=== PATIENT | male | born 1930 | race Caucasian/White ===

== ENCOUNTER → 2018-07-06 | Outpatient (CLI) | payer OTHER ==
[~2018-07-06] MED LIST: ACET-1256 PO; ALL300 PO; AMLO5TAB3 PO; ASPI-232 PO; ATOR-24 PO; DOCU-94 PO; ESCI10TA17 PO; FINA5TAB4 PO; LEVO75TA PO; METO-596 PO; PROB1TAB16 PO
== END | disposition home or self-care (01) ==
LOC: C.LABSPEC 11:49
PROVIDERS: ATTEND Internal Medicine
DX: R82.90 Unspecified abnormal findings in urine (principal)

== ENCOUNTER 2019-05-14 06:02 | Inpatient (IN) ==
--- OUTSIDE RECORDS SUMMARY | 2019-05-14 06:06 | External Medical Summary | Continuity of Care Document ---
:1930 Author Name Franklin Chapman Address Unavailable Unavailable , Care Team Providers Name Role Phone Octavio He [email or web address] PCP, UNKNOWN Unavailable Unavailable Problems Active medical history not documented Allergies and Adverse Reactions Allergy history not documented Medications Medications not documented Procedures Procedures not documented Immunizations Immunizations not documented Plan of Treatment Planned Encounters Appointment; Juan He M.D. Start: 10-Jun-2019 14:00 R equest Planned Observations Planned Goals not documented Results No Known Results Results not documented Encounters Appointment; Juan He M.D. 10-Jun-2019 14:00 Encounter Diagnosis: Problem not documented
--- NOTE | 2019-05-14 06:25 | CT Scan Report ---
CT head/brain wo con CLINICAL HISTORY: 89 years-old Male presenting with AMS, fall, confusion. TECHNIQUE: Multidetector CT imaging of the head was performed without the use of intravenous contrast . IV contrast: None. One or more dose lowering techniques were used consistent with the principles of ALARA (as low as reasonably achievable), including automatic exposure control, mA or kV adjustment t o individual patient size, and/or use of iterative reconstruction. COMPARISON: 03/04/2019. CT DOSE (mGy.cm): The estimated cumulative dose is 1026.24 mGy.cm. FINDINGS: Sanitation [employer] topogram: Left subclavian cardiac device. Proportional ventricular and sulcal prominence, likely age-related parenchymal volume loss. No hemorr daniela. Periventricular and subcortical white matter hypoattenuation, nonspecific but likely indicative of chronic small vessel ischemic change. Old lacunar infarcts in the basal ganglia. Old lacunar infa rct also noted in the genu of the corpus callosum. No acute territorial infarct. No mass effect or mi dline shift. No extra-axial fluid collection. Scattered mucosal thickening in ethmoid air cells. Calv arium intact. Mild infiltration of the subcutaneous tissue in the forehead. No hematoma. IMPRESSION: 1. Chronic small vessel ischemic change and multiple old lacunar infarcts. No acute intracranial abn ormality. 2. Trace scalp contusion in the forehead may be present. No subjacent osseous injury or hematoma. Electronically signed by: Jayden Solano M.D. 05/14/2019 6:24 AM
[2019-05-14 06:36] LABS: Basophils # (auto) 0.07 K/uL (0-0.2); Eosinophils # (auto) 0.49 K/uL (0-0.5); Eosinophils % (auto) 7.2 %; Hematocrit (blood only) 39.6 % (42-52); Hemoglobin 13.1 g/dL (14.0-18.0); Immature Granulocytes # (auto) 0.02 K/uL (0.00-0.02); Immature Granulocytes % (auto) 0.3 %; Lymphocytes # (auto) 1.62 K/uL (1.2-3.4); Lymphocytes % (auto) 23.9 %; Mean Corpuscular Hgb Conc 33.1 g/dL (32-36); Mean Corpuscular Volume 90.6 fL (80-100); Monocytes # (auto) 0.77 K/uL (0.11-0.59); Monocytes % (auto) 11.4 %; Neutrophils # (auto) 3.81 K/uL (1.4-6.5); Neutrophils % (auto) 56.2 %; Platelet Count 262 K/uL (130-400); RDW Coefficient of Variation 15.9 % (11.5-14.5); RDW Standard Deviation 52.7 fL (36.4-46.3); Red Blood Count 4.37 M/uL (4.7-6.1); White Blood Count 6.78 K/uL (4.8-10.8)
[2019-05-14 06:43] LABS: Alanine Aminotransferase 21 U/L (12-78); Aspartate Aminotransferase 19 U/L (15-37); BUN Creatinine Ratio 15.9 (10-20); Bilirubin Direct 0.1 mg/dl (0-0.2); Blood Urea Nitrogen 21 mg/dl (7-18); Calcium 8.4 mg/dl (8.5-10.1); Carbon Dioxide 25 mmol/L (21-32); Chloride 111 mmol/L (98-107); Est GFR (African American) 56.1; Est GFR (Non-African American) 48.4; Glucose 107 mg/dl (70-99); Potassium 3.6 mmol/L (3.5-5.1); Sodium 142 mmol/L (136-145)
[2019-05-14 06:45] LABS: INR 1.1 (0.9-1.1); Prothrombin Time 11.6 Seconds (9.0-12.0)
[2019-05-14 06:54] LABS: Alkaline Phosphatase 122 U/L (45-117); Bilirubin,Total 0.5 mg/dl (0.2-1); Total Protein 6.8 gm/dl (6.4-8.2); Troponin I < 0.015 ng/ml (0-0.045)
--- NOTE | 2019-05-14 06:59 | Emergency Department Note ---
Entered by Erendira Fuller acting as a scribe for History of Present Illness General Chief complaint: Fall Stated complaint: FALL/ HIP PAIN Time Seen by Provider: 05/14/19 06:27 Source: patient, family (daughter) and EMS History of Present Illness Onset (ago): hour(s) (last night) Location: head Pain Consistency: + other (episode) Quality: + other (fall) Associated symptoms: + denies other symptoms (abdominal pain, hip pain, chest pain, dysuria, changes in diet), + confusion and + other (fatigue) The patient is a 89 year old male that is presenting to the Emergency Room with complaints of an episode of a fall that occurred around midnight last night. The patient was brought to the Emergency Room via EMS. EMS reports that the patient fell last night at his personal care facility [facility]. EMS notes that the patient was found to be at baseline following the fall. EMS states that the patient was reportedly difficult to wake this morning and that he seemed more confused than baseline. EMS notes that his O2 saturation level was low when they picked him up, so they placed him on O2 en route. EMS reports that the patient had no complaints and was able to follow commands upon their arrival. The patient's daughter reports that the patient has intermittent episodes of confusion that usually resolve after a short period of time. His daughter denies that the patient has had any recent fevers or illnesses. His daughter reports that she has not been told that there have been in changes in the patients diet. His daughter notes that the patient has not been diagnosed with dementia but she does note that the patient has a history of confusion about place and person. 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 His daughter denies that the patient has any history of lung issues, diabetes, or major trauma from falls. His daughter states that the patient is usually able to get around on his own at his personal care facility and that he is able to attend all three meals without any issues. The patients daughter denies any recent changes in the patients medications. His daughter states that her sister recently met with the care staff at the [facility] who stated that the patient was doing well. The patient reports that he feels tired. He denies any abdominal pain, chest pain, dysuria, or hip pain. He states that he is currently in a dog pen and that the dogs are barking. Upon arrival, the patient told the nursing staff that his name is Renzo and that it is November. The nursing staff notes that the patient was later able to state that his name is Bebeto. Home Medications Home Medications Medication Instructions Recorded Confirmed Type acetaminophen 500 - 1,000 mg PO Q4 PRN 03/03/19 05/14/19 History allopurinol 300 mg PO DAILY 03/03/19 05/14/19 History aspirin 81 mg PO DAILY 03/03/19 05/14/19 History carvedilol [Coreg] 25 mg PO BID 03/03/19 05/14/19 History escitalopram oxalate 10 mg PO DAILY 03/03/19 05/14/19 History finasteride 5 mg PO DAILY 03/03/19 05/14/19 History lactobacillus combination no.4 1 mmu cells PO BID 03/03/19 05/14/19 History [Probiotic] levothyroxine [Synthroid] 75 mcg PO DAILY 03/03/19 05/14/19 History lisinopril 20 mg PO DAILY 03/03/19 05/14/19 History polyethylene glycol 3350 [Miralax] 17 g PO DAILY 03/03/19 05/14/19 History sennosides [senna] 8.6 mg PO BID 03/03/19 05/14/19 History Allergies Allergy/AdvReac Type Severity Reaction Status Date / Time morphine Allergy Unknown Verified 05/14/19 06:32 Past Med/Surg History Medical History Pacemaker TIA (transient ischemic attack) Constipation (Resolved) UTI (urinary tract infection) (Inactive) Family History Other No pertinent family history Social History Preferred Language: Romansh marital status: / Current Living Situation: Personal Care Facility current occupational status: retired Feels Safe at Home: Yes Smoking Status: Never smoker Review of Systems See HPI for pertinent positives & negatives. and A total of 10 systems reviewed and were otherwise negative Physical Exam Vital Signs Vital Signs - 24 hr 05/14/19 06:09 05/14/19 07:05 05/14/19 08:29 Temperature 36.8 C Temperature Source Oral Sepsis Recent Fever Within 48 Hours No Sepsis Action Taken by Nursing No Action Required Pulse Rate 85 Pulse Rate [Apical] 60 60 Respiratory Rate 18 16 16 Blood Pressure 167/86 H Blood Pressure [Right Arm] 144/74 H 163/89 H Blood Pressure Mean 113 Blood Pressure Mean [Right Arm] 97 113 Pulse Oximetry 95 92 93 Oxygen Delivery Method Room Air Room Air Room Air General: Older male who is sleeping but in no acute distress. He arouses and falls back to sleep. Answers some questions appropriately but some not. Alert to person only. HEENT: Normal cephalic atraumatic. Pupils are equal round and reactive to light. Extraocular movements are intact. Oropharynx is pink with moist mucous membranes. No swelling of the mouth lips or tongue. Neck: Supple with a midline trachea. No meningeal signs or stiffness, no JVD or bruits. No Stridor. Chest: Clear to auscultation bilaterally. No wheezes or rhonchi. No increased work of breathing. Heart: regular rate and rhythm. Abdomen: Soft nontender, nondistended without rebound guarding or rigidity. Extremities: No cyanosis clubbing or edema. No calf tenderness or asymmetry Spine/Back. Non tender to palpation. No CVA tenderness Skin: Good turgor without rashes. Neurologic exam: Cranial nerves two through 12 are intact. Motor and sensation are intact and symmetrical throughout. Course 0628:The patient was evaluated in room A09B. A complete history and physical examination was performed. 0715: I updated the patient on his current lab and imaging results. The patient is resting comfortably and a Esparza catheter is being placed at this time. 0731: I reevaluated the patient and discussed the patient's case with the patient's second daughter. 0738: I discussed the patient's case with Evan Poe, who will evaluate the patient for further management and care. 0745: Upon reevaluation, the patient is resting comfortably. I discussed laboratory and radiographic results with the patient and his daughter. They verbalized agreement of the treatment plan. The patient will be evaluated for further management and care. Consultations Consultation #1: I discussed the patient's case with Evan Poe, who will evaluate the patient for further management and care. Time: 07:38 Administered Medications Discontinued Medications Ceftriaxone Sodium 2,000 mg/ (Dextrose) 70 mls @ 100 mls/hr IV NOW STA Stop: 05/14/19 08:12 Last Admin: 05/14/19 08:30 Dose: 100 mls/hr Documented by: [id number] Medical Decision Making Differential Diagnosis Differential diagnosis includes: Etiologies such as infection, trauma, intracranial process, thyroid issues, electrolyte or metabolic abnormalities as well as others were entertained. Medical Records Attestation: I reviewed the patient's medical records. Home Medications Current Medication List: was personally reviewed by me Laboratory Data Attestation: I reviewed the patient's lab results. Result diagrams: 05/14/19 06:12 05/14/19 06:12 Lab Results 05/14/19 05/14/19 05/14/19 Range/Units 06:12 06:12 06:12 WBC 6.78 (4.8-10.8) K/uL RBC 4.37 L (4.7-6.1) M/uL Hgb 13.1 L (14.0-18.0) g/dL Hct 39.6 L (42-52) % MCV 90.6 (80-100) fL MCH 30.0 (25-34) pg MCHC 33.1 (32-36) g/dL RDW Std Deviation 52.7 H (36.4-46.3) fL RDW Coeff of Mandi 15.9 H (11.5-14.5) % Plt Count 262 (130-400) K/uL MPV 10.0 (7.4-10.4) fL Immature Gran % (Auto) 0.3 % Neut % (Auto) 56.2 % Lymph % (Auto) 23.9 % Eddy % (Auto) 11.4 % Eos % (Auto) 7.2 % Baso % (Auto) 1.0 % Immature Gran # (Auto) 0.02 (0.00-0.02) K/uL Neut # (Auto) 3.81 (1.4-6.5) K/uL Lymph # (Auto) 1.62 (1.2-3.4) K/uL Eddy # (Auto) 0.77 H (0.11-0.59) K/uL Eos # (Auto) 0.49 (0-0.5) K/uL Baso # (Auto) 0.07 (0-0.2) K/uL PT 11.6 (9.0-12.0) Seconds INR 1.1 (0.9-1.1) Sodium 142 (136-145) mmol/L Potassium 3.6 (3.5-5.1) mmol/L Chloride 111 H (98-107) mmol/L Carbon Dioxide 25 (21-32) mmol/L Anion Gap 6.0 (3-11) BUN 21 H (7-18) mg/dl Creatinine 1.30 (0.6-1.4) mg/dl Est Cr Clr Drug Dosing 44.0 ml/min Est GFR ( Amer) 56.1 Est GFR (Non-Af Amer) 48.4 BUN/Creatinine Ratio 15.9 (10-20) Glucose 107 H (70-99) mg/dl Calcium 8.4 L (8.5-10.1) mg/dl Total Bilirubin 0.5 (0.2-1) mg/dl Direct Bilirubin 0.1 (0-0.2) mg/dl AST 19 (15-37) U/L ALT 21 (12-78) U/L Alkaline Phosphatase 122 H (45-117) U/L Troponin I < 0.015 (0-0.045) ng/ml Total Protein 6.8 (6.4-8.2) gm/dl Albumin 3.0 L (3.4-5.0) gm/dl TSH 1.860 (0.300-4.500) uIu/ml Urine Color Urine Appearance (Clear) Urine pH (4.5-7.5) Ur Specific [place] (1.000-1.030) Urine Protein (Negative) Urine Glucose (UA) (Negative) Urine Ketones (Negative) Urine Blood (Negative) Urine Nitrite (Negative) Urine Bilirubin (Negative) Urine Urobilinogen (Negative) Ur Leukocyte Esterase (Negative) Urine WBC (Auto) (0-5) /hpf Urine RBC (Auto) (0-4) /hpf U Hyaline Cast (Auto) (0-5) /lpf U Epithel Cells (Auto) (0-5) /lpf Urine Bacteria (Auto) (Negative) 05/14/19 Range/Units 07:20 WBC (4.8-10.8) K/uL RBC (4.7-6.1) M/uL Hgb (14.0-18.0) g/dL Hct (42-52) % MCV (80-100) fL MCH (25-34) pg MCHC (32-36) g/dL RDW Std Deviation (36.4-46.3) fL RDW Coeff of Mandi (11.5-14.5) % Plt Count (130-400) K/uL MPV (7.4-10.4) fL Immature Gran % (Auto) % Neut % (Auto) % Lymph % (Auto) % Eddy % (Auto) % Eos % (Auto) % Baso % (Auto) % Immature Gran # (Auto) (0.00-0.02) K/uL Neut # (Auto) (1.4-6.5) K/uL Lymph # (Auto) (1.2-3.4) K/uL Eddy # (Auto) (0.11-0.59) K/uL Eos # (Auto) (0-0.5) K/uL Baso # (Auto) (0-0.2) K/uL PT (9.0-12.0) Seconds INR (0.9-1.1) Sodium (136-145) mmol/L Potassium (3.5-5.1) mmol/L Chloride (98-107) mmol/L Carbon Dioxide (21-32) mmol/L Anion Gap (3-11) BUN (7-18) mg/dl Creatinine (0.6-1.4) mg/dl Est Cr Clr Drug Dosing ml/min Est GFR ( Amer) Est GFR (Non-Af Amer) BUN/Creatinine Ratio (10-20) Glucose (70-99) mg/dl Calcium (8.5-10.1) mg/dl Total Bilirubin (0.2-1) mg/dl Direct Bilirubin (0-0.2) mg/dl AST (15-37) U/L ALT (12-78) U/L Alkaline Phosphatase (45-117) U/L Troponin I (0-0.045) ng/ml Total Protein (6.4-8.2) gm/dl Albumin (3.4-5.0) gm/dl TSH (0.300-4.500) uIu/ml Urine Color Dark Yellow Urine Appearance Cloudy A (Clear) Urine pH 5.0 (4.5-7.5) Ur Specific [place] 1.024 (1.000-1.030) Urine Protein Negative (Negative) Urine Glucose (UA) Negative (Negative) Urine Ketones Negative (Negative) Urine Blood Negative (Negative) Urine Nitrite Positive A (Negative) Urine Bilirubin Negative (Negative) Urine Urobilinogen Negative (Negative) Ur Leukocyte Esterase 2+ H (Negative) Urine WBC (Auto) >30 H (0-5) /hpf Urine RBC (Auto) 0-4 (0-4) /hpf U Hyaline Cast (Auto) 1-5 (0-5) /lpf U Epithel Cells (Auto) 0-5 (0-5) /lpf Urine Bacteria (Auto) 4+ H (Negative) Imaging Data Radiologist's Impression: Radiology results as stated below per my review and the radiologist's interpretation: CT head/brain wo con CLINICAL HISTORY: 89 years-old Male presenting with AMS, fall, confusion. TECHNIQUE: Multidetector CT imaging of the head was performed without the use of intravenous contrast. IV contrast: None. One or more dose lowering techniques were used consistent with the principles of ALARA (as low as reasonably achievable), including automatic exposure control, mA or kV adjustment to individual patient size, and/or use of iterative reconstruction. COMPARISON: 03/04/2019. CT DOSE (mGy.cm): The estimated cumulative dose is 1026.24 mGy.cm. FINDINGS: Bookkeeper topogram: Left subclavian cardiac device. Proportional ventricular and sulcal prominence, likely age-related parenchymal volume loss. No hemorrhage. Periventricular and subcortical white matter hypoattenuation, nonspecific but likely indicative of chronic small vessel ischemic change. Old lacunar infarcts in the basal ganglia. Old lacunar infarct also noted in the genu of the corpus callosum. No acute territorial infarct. No mass effect or midline shift. No extra-axial fluid collection. Scattered mucosal thickening in ethmoid air cells. Calvarium intact. Mild infiltration of the subcutaneous tissue in the forehead. No hematoma. IMPRESSION: 1. Chronic small vessel ischemic change and multiple old lacunar infarcts. No acute intracranial abnormality. 2. Trace scalp contusion in the forehead may be present. No subjacent osseous injury or hematoma. Electronically signed by: Jayden Solano M.D. 05/14/2019 6:[address] cervical spine wo con CLINICAL HISTORY: 89 years-old Male presenting with fall, confusion. TECHNIQUE: Multidetector CT of the cervical spine was performed without the use of intravenous contrast. IV contrast: None. One or more dose lowering techniques were used consistent with the principles of ALARA (as low as reasonably achievable), including automatic exposure control, mA or kV adjustment to individual patient size, and/or use of iterative reconstruction. COMPARISON: None. CT DOSE (mGy.cm): The estimated cumulative dose is 1026.24. FINDINGS: Bookkeeper topogram: Left subclavian implanted cardiac device Osteopenia. Straightening of normal cervical lordosis. Trace anterolisthesis of C3 on C4 and retrolisthesis of C4 on C5. Trace anterolisthesis of C7 on T1. Vertebral bodies maintain normal height. Multilevel intervertebral disc height loss, which is moderate to severe from C4-5 through C6-7. Disc osteophyte complexes noted to varying degrees at every level with mild posterior bony spurring at C3-4 through C5-6. Limited evaluation of the soft tissues of the spinal canal further suggest mild spinal canal narrowing at these levels. Facet arthropathy and uncovertebral hypertrophy results in osseous neural foraminal narrowing bilaterally at C3-4, bilaterally at C4-5, and bilaterally at C5-6. No acute fracture or subluxation allowing for osteopenia, which decreases sensitivity for fracture detection. Skull base is intact. Lung apices clear. Paraspinal musculature within normal limits. Partially visualized left subclavian implanted cardiac device. IMPRESSION: 1. No acute osseous injury of the cervical spine. 2. Multilevel degenerative changes with straightening of cervical lordosis and multilevel anterolisthesis and retrolisthesis as above. 3. Multilevel mild osseous spinal canal narrowing and multilevel osseous neural foraminal narrowing. 4. Osteopenia. Electronically signed by: Jayden Solano M.D. 05/14/2019 7:44 AM XR chest 1V portable CLINICAL HISTORY: 89 years-old Male presenting with AMS. TECHNIQUE: Portable upright AP view of the chest was obtained. COMPARISON: 03/04/2019. FINDINGS: Left subclavian pacer with leads to the right atrium and right ventricular apex. Atherosclerosis of the aortic arch. Cardiac silhouette mildly enlarged as on prior exam. Pulmonary vascular prominence increased from prior. Bronchial wall cuffing suggested. Low lung volumes. Added density in the mid to basilar left lung. No large effusion or pneumothorax. Degenerative changes of the left glenohumeral joint. IMPRESSION: 1. Asymmetric left lung infiltrate in the mid to basilar region. While this may represent asymmetric pulmonary edema, this is most concerning for pneumonia. 2. Mild cardiomegaly with volume overload and congestive change. Electronically signed by: Jayden Solano M.D. 05/14/2019 7:26 AM ECG Data Attestation: I personally reviewed and interpreted this ECG as follows: Indication: weakness Rate (beats per minute): 60 Rhythm: other (paced) Findings: + other (low voltage), + nonspecific-ST abn and + paced rhythm Comparison ECG Date: from (03/04/2019) Change: the following changes noted (T-wave abnormalities have improved laterally.) Blood Pressure Blood Pressure Findings: Elevated blood pressure Blood Pressure Disposition: Referred to patients primary care provider LUCÍA Narrative This patient is brought in after having altered mental status. He has increased lethargy and confusion. He may have fallen yesterday. [place] but according to his daughter he is otherwise been healthy lately. He has no diagnosed history of dementia but does get confused at times his daughter says. On my exam, he is sleeping but arouses and answers some questions appropriately but others obviously not. He has a nonfocal neurologic exam otherwise. CAT scan of his head was obtained and was unremarkable. EKG shows an intermittently paced rhythm but no ischemic changes. He has no significant electrolyte or metabolic abnormalities. His white count is not elevated nor does he have a fever. He is not anemic. His urinalysis does suggest a UTI. His chest x-ray may also have a pneumonia versus some asymme trical pulmonary edema. He was given IV Rocephin for presumed UTI and possible pneumonia. I think the UTI actually fits this picture more. I did order blood cultures and lactic acid in light of this as well. I have consulted Dr. Deleon from the [facility] hospitalist team to see the patient in the ER for further treatment and evaluation. Impression & Plan Altered mental status, UTI (urinary tract infection), Pneumonia Discharge Plan Visit Data Chief Complaint: Fall Stated Complaint: FALL/ HIP PAIN Other Complaint: Hip Pain ED Provider: Preston Ho Discharge Problem: Altered mental status, UTI (urinary tract infection), Pneumonia Patient Disposition: Being Evaluated by Hospitalist Forms Stand Alone Forms: My [facility] Distra Prescriptions Prescriptions: No Action carvedilol [Coreg] 25 mg Tablet 25 mg PO BID RF: 0 sennosides [senna] 8.6 mg Tablet 8.6 mg PO BID RF: 0 lisinopril 20 mg Tablet 20 mg PO DAILY RF: 0 aspirin 81 mg Tablet,Delayed Release (Dr/Ec) 81 mg PO DAILY RF: 0 acetaminophen 500 mg Tablet 500 - 1,000 mg PO Q4 PRN (Reason: pain/fever) RF: 0 levothyroxine [Synthroid] 75 mcg Tablet 75 mcg PO DAILY RF: 0 allopurinol 300 mg Tablet 300 mg PO DAILY RF: 0 polyethylene glycol 3350 [Miralax] 17 gram/dose Powder 17 g PO DAILY RF: 0 finasteride 5 mg Tablet 5 mg PO DAILY RF: 0 escitalopram oxalate 10 mg Tablet 10 mg PO DAILY RF: 0 Probiotic 3 billion cell Capsule 1 mmu cells PO BID RF: 0 Referrals Referrals: [facility] AIRAM ALMEIDA [Primary Care Provider] - Discharge Problem: Altered mental status Qualifiers: Altered mental status type: unspecified Qualified Code(s): R41.82 - Altered mental status, unspecified UTI (urinary tract infection) Qualifiers: Urinary tract infection type: site unspecified Hematuria presence: without hematuria Qualified Code(s): N39.0 - Urinary tract infection, site not specified Pneumonia Qualifiers: Pneumonia type: due to unspecified organism Laterality: left Lung location: lower lobe of lung Qualified Code(s): J18.1 - Lobar pneumonia, unspecified organism The scribe's documentation has been prepared under my direction and personally reviewed by me in its entirety. I confirm that the note above accurately reflects all work, treatment, procedures, and medical decision making performed by me.
--- NOTE | 2019-05-14 07:28 | XRay Report ---
XR chest 1V portable CLINICAL HISTORY: 89 years-old Male presenting with AMS. TECHNIQUE: Portable upright AP view of the chest was obtained. COMPARISON: 03/04/2019. FINDINGS: Left subclavian pacer with leads to the right atrium and right ventricular apex. Atherosclerosis of t he aortic arch. Cardiac silhouette mildly enlarged as on prior exam. Pulmonary vascular prominence in creased from prior. Bronchial wall cuffing suggested. Low lung volumes. Added density in the mid to b asilar left lung. No large effusion or pneumothorax. Degenerative changes of the left glenohumeral edinson int. IMPRESSION: 1. Asymmetric left lung infiltrate in the mid to basilar region. While this may represent asymmetric pulmonary edema, this is most concerning for pneumonia. 2. Mild cardiomegaly with volume overload and congestive change. Electronically signed by: Jayden Solano M.D. 05/14/2019 7:26 AM
[2019-05-14] MEDS ORDERED: cefTRIAXone SODIUM 2,000 MG in DEXTROSE 5% 50 ML IV STA (07:31)
--- NOTE | 2019-05-14 07:47 | CT Scan Report ---
CT cervical spine wo con CLINICAL HISTORY: 89 years-old Male presenting with fall, confusion. TECHNIQUE: Multidetector CT of the cervical spine was performed without the use of intravenous contra st. IV contrast: None. One or more dose lowering techniques were used consistent with the principles of ALARA (as low as reasonably achievable), including automatic exposure control, mA or kV adjustment to individual patient size, and/or use of iterative reconstruction. COMPARISON: None. CT DOSE (mGy.cm): The estimated cumulative dose is 1026.24. FINDINGS: Client Relationship Executive topogram: Left subclavian implanted cardiac device Osteopenia. Straightening of normal cervical lordosis. Trace anterolisthesis of C3 on C4 and retrolis thesis of C4 on C5. Trace anterolisthesis of C7 on T1. Vertebral bodies maintain normal height. Multi level intervertebral disc height loss, which is moderate to severe from C4-5 through C6-7. Disc osteo phyte complexes noted to varying degrees at every level with mild posterior bony spurring at C3-4 thr ough C5-6. Limited evaluation of the soft tissues of the spinal canal further suggest mild spinal can al narrowing at these levels. Facet arthropathy and uncovertebral hypertrophy results in osseous neur al foraminal narrowing bilaterally at C3-4, bilaterally at C4-5, and bilaterally at C5-6. No acute fr acture or subluxation allowing for osteopenia, which decreases sensitivity for fracture detection. Sk ull base is intact. Lung apices clear. Paraspinal musculature within normal limits. Partially visuali zed left subclavian implanted cardiac device. IMPRESSION: 1. No acute osseous injury of the cervical spine. 2. Multilevel degenerative changes with straightening of cervical lordosis and multilevel anterolist hesis and retrolisthesis as above. 3. Multilevel mild osseous spinal canal narrowing and multilevel osseous neural foraminal narrowing. 4. Osteopenia. Electronically signed by: Jayden Solano M.D. 05/14/2019 7:44 AM
[2019-05-14 07:51] LABS: Appearance Urine Cloudy (Clear); Bacteria Urine Automated 4+ (Negative); Bilirubin Urine Negative (Negative); Blood Urine Negative (Negative); Color Urine Dark Yellow; Epithelial Cell Urine Auto 0-5 /lpf (0-5); Glucose Urine UA Negative (Negative); Ketones Urine Negative (Negative); Leukocyte Esterase Urine 2+ (Negative); Nitrite Urine Positive (Negative); Protein Urine Negative (Negative); RBC Urine Automated 0-4 /hpf (0-4); Specific Gravity Urine 1.024 (1.000-1.030); Urobilinogen Urine Negative (Negative); WBC Urine Automated >30 /hpf (0-5)
--- NOTE | 2019-05-14 08:40 | History & Physical Report ---
Date of Service May 14, 2019 Assessment & Plan (1) Altered mental status: Presented with obtundation, stuporous state Altered mental status: At baseline patient is able to communicate, able to recognize family has decline in memory and cognition ( dementia) usually able to communicate/have conversation Patient could not be aroused during my interview in ER no evidence of any acute neurological event/CVA: CT head shows no acute pathology, no evidence of intracranial hemorrhage No focal neurological deficit noted in apparent/limited neuro exam altered mental status due to : Possible metabolic encephalopathy in the setting of infection/pneumonia/abnormal UA/dehydration Patient will be admitted to medical telemetry, monitor neurochecks (2) Metabolic encephalopathy: Presented with obtundation, metabolic encephalopathy secondary to infection, left lower lobe pneumonia, possible UTI Patient started with empiric antibiotic with IV Unasyn (for concern of aspiration-patient noted to have increased somnolence in past 1 week, high risk for aspiration with baseline dementia. No report of ongoing fever chills or cough in the personal alf Added IV Zithromax for atypical coverage No evidence of sepsis, normal white count, normal vitals, patient is afebrile Strict aspiration precaution, n.p.o. till patient is awake and alert Speech pathology evaluation requested (3) Left lower lobe pneumonia: Symmetrical infiltrate noted in left lower lobe Suspicious of pneumonia Empiric antibiotics as outlined above, Unasyn/Zithromax, Ordered for speech evaluation-to assess aspiration risk Strict aspiration precaution Chest x-ray suggestive of possible pulmonary congestion No lower extremity edema Order for resting echo to assess LV function/evidence of congestive heart failure (4) Abnormal urinalysis: Urine noted to be cloudy, with positive nitrite Ordered for urine culture Antibiotic as outlined above (5) Fall: Report of fall last night, patient was found on floor at personal alf Per nursing staff, patient did not hit his head, no weakness or pain noted on initial evaluation CT head noncontrast shows no acute intracranial pathology Cervical spine CT shows no acute change Patient does have a superficial abrasion on bilateral knees No evidence of active infection Local wound care will be provided Order for fall precaution PT OT evaluation when medically stable to participate (6) History of spontaneous intraventricular intracranial hemorrhage: History of recent continue intracranial hemorrhage November Patient was at [facility] ER on 12/06/2018,-presented with complaint of headache/confusion/decreased appetite No history of trauma CT head noncontrast showed large intra-ventricular hemorrhage in the right lateral ventricle with trace blood in left lateral and third ventricles. Chest x-ray at that time also showed infiltrateconcern for pneumonia Patient was transferred to [facility] for neurosurgery evaluation-had a week long hospital stay () Patient did not require any neurosurgery intervention at [facility] imaging during the admission remained stable, without active source of bleed BP medications were optimized prior to DC. Patient mentation waxed and waned during his ICU and medical surgical floor stay At times patient was found unresponsive but repeat imaging and EEG was unremarkable Per discharge summary note, -patient's mental status usually noted to be worse, patient is more obtunded lethargic in the morning Was discharged to rehab [facility] on 12/14/2018 During this hospital admission: 05/14/[address] head noncontrast shows no evidence of intracranial hemorrhage (7) Hypertension: BP stable Continue lisinopril 20 mg daily/Coreg 25 mg twice daily-Home medication (8) Hyperlipidemia: Continue atorvastatin 40 mg daily (9) Hypothyroidism: Continue levothyroxine 75 mcg daily TSH level within normal limits (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 Jori Stockton Patient is sent from [facility] -early this morning, as patient was found to be stuporous, difficult to arouse, mental status changed from normal baseline Could not obtain any information from the patient, Very obtunded, lethargic, opened eyes briefly to voice, falls back to sleep, Right-sided facial droop, distortion of the mouth noted while patient was sleeping, gets corrected and when patient is awake, and trying to articulate Rest of the information obtained from patient's daughter and son-in-law present at bedside, ER physician notes, and nursing report from [facility] As per nursing: Patient sustained a fall around midnight today, Nursing staff found him lying on the floor Patient was arousable, mentioned that he slipped and fell Did not hit his head, noted to have bruits on both knees Patient was evaluated by nursing staff, all range of motion of the extremities were normal, patient was awake, able to answer questions appropriately This morning patient was found to be difficult to arouse, somnolent, Vital checks were within normal limit Patient was sent to [facility] ER for further evaluation No report of fever chills, no cough, no nausea vomiting or diarrhea at the personal alf Daughter mentions-she visited patient proximately 5 days back, noted that patient was always sleeping most part of the day, As he wakes up, he is alert, oriented to person only, significant memory and cognitive decline is noted after November 2018 intracranial hemorrhage Normally he is able to ambulate with a walker /able to feed himself /needs assistance in ADLs Patient's current mentation is completely different from his normal baseline as per Family and nursing staff at the [facility]: No report of difficulty swallowing , no signs /symptoms of aspiration: Coughing /chocking during meals In the ER: Vital signs at 6:09 AM Temperature 36.8/heart rate 85/respiratory rate 18/blood pressure 167/87 Pulse oximetry 95% in room air White count normal, electrolytes essentially within normal limit except for mild elevation of BUN -suggestive of possible dehydration/creatinine at approximate baseline Chest x-ray shows left lower lobe infiltrate CT head noncontrast shows no evidence of intracranial hemorrhage, no acute pathology Allergies Allergy/AdvReac Type Severity Reaction Status Date / Time morphine Allergy Unknown Verified 05/14/19 06:32 Home Medications Home Medications Medication Instructions Recorded Confirmed Type acetaminophen 500 - 1,000 mg PO Q4 PRN 03/03/19 05/14/19 History allopurinol 300 mg PO DAILY 03/03/19 05/14/19 History aspirin 81 mg PO DAILY 03/03/19 05/14/19 History carvedilol [Coreg] 25 mg PO BID 03/03/19 05/14/19 History escitalopram oxalate 10 mg PO DAILY 03/03/19 05/14/19 History finasteride 5 mg PO DAILY 03/03/19 05/14/19 History lactobacillus combination no.4 1 mmu cells PO BID 03/03/19 05/14/19 History [Probiotic] levothyroxine [Synthroid] 75 mcg PO DAILY 03/03/19 05/14/19 History lisinopril 20 mg PO DAILY 03/03/19 05/14/19 History polyethylene glycol 3350 [Miralax] 17 g PO DAILY 03/03/19 05/14/19 History sennosides [senna] 8.6 mg PO BID 03/03/19 05/14/19 History Past Med/Surg History Medical History BPH w urinary obs/LUTS Hyperlipidemia Hypertension Hypothyroidism Intracranial hemorrhage Nontraumatic, 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 TIA (transient ischemic attack) Constipation (Resolved) UTI (urinary tract infection) (Inactive) Family History Other No pertinent family history Social History Preferred Language: Mongolian Communication Ability: Effective Beliefs That Will Affect Care: None marital status: / Current Living Situation: Personal Care Facility Current Living Situation Comment: [facility] current occupational status: retired Other Information That Helps Us Care for You: No Feels Safe at Home: Yes Safety Concerns: Feels Safe At This Time Smoking Status: Never smoker Hx Alcohol Use: No Hx Substance Use: No Review of Systems Review of Systems: Unobtainable due to mental health condition (Obtunded, somnolent/unable to follow commands) Physical Exam Constitutional: no acute distress Elderly male, very somnolent difficult to arouse, opens eyes briefly to voice, falls back to sleep, no apparent distress noted Eyes: + anicteric sclerae ENMT: Normal inspection Neck: normal visual inspection Respiratory: normal respiratory effort; no respiratory distress and no cough Auscultation: no crackles, no rales, no rhonchi and no wheezes Cardiovascular: RRR, no murmur, no edema Gastrointestinal (Abdomen): Inspection/Auscultation: abdomen normal to inspection and normal bowel sounds; abdomen not distended Percussion/Palpation: abdomen soft Musculoskeletal: Head/Neck/Chest: + head abnormal to inspection, normocephalic and head atraumatic Extremities: + extremities abnormal to inspection (Small area of superficial abrasion noted on right knee, there appeared to be secondary to recent trauma/fall, small abrasion noted at left knee as well, no sign of infection, erythema noted, no active drainage) Unable to check strength of extremity as patient remains obtunded Skin: Trauma: + evidence of skin trauma and + abrasion (Bilateral knees appears to be recent injury secondary to fall) Area of abrasion, noted on bilateral knees Neurologic: Obtunded, difficult to arouse, No apparent focal neurological deficit noted Psychiatric: Obtunded, somnolent Results & Data Vital Signs (Past 12 Hours) Vital Signs Temp Pulse Pulse Resp BP BP Pulse Ox 05/14/19 08:29 60 16 163/89 H 93 05/14/19 07:05 60 16 144/74 H 92 05/14/19 06:09 36.8 C 85 18 167/86 [address] HEAD NONCONTRAST:05/14/2019 1. 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 No acute intracranial abnormality. 2. Trace scalp contusion in the forehead may be present. No subjacent osseous injury or hematoma CHEST X-RAY ONE VIEW PORTABLE: 05/14/2019 1. Left subclavian pacer with leads to the right atrium and right ventricular apex. Asymmetric left lung infiltrate in the mid to basilar region. While may represe nt asymmetric pulmonary edema this is most concerning for pneumonia. 2. Mild cardiomegaly with volume overload and congestive changes. Medications Administered Medication administered in ER: IV Rocephin 1 g x 1 stat -for possible community-acquired pneumonia Current Inpatient Medications Acetaminophen (Tylenol) 650 mg PO Q4H PRN PRN Reason: Pain or Fever Stop: 06/13/19 09:55 Al Hydrox/Mg Hydrox/Simethicone (Maalox) 15 ml PO Q4H PRN PRN Reason: Dyspepsia Stop: 06/13/19 09:55 Allopurinol (Zyloprim) 300 mg PO DAILY [facility] Stop: 06/13/19 09:55 Aspirin (Ecotrin Ectab) 81 mg PO DAILY [facility] Stop: 06/13/19 09:55 Carvedilol (Coreg) 25 mg PO BID [facility] Stop: 06/13/19 09:55 Escitalopram Oxalate (Lexapro) 10 mg PO DAILY [facility] Stop: 06/13/19 09:55 Finasteride (Proscar) 5 mg PO DAILY [facility] Stop: 06/13/19 09:55 Heparin Sodium (Porcine) (Heparin Sodium (Porcine)) 5,000 units SQ Q12 [facility] Stop: 06/13/19 09:55 Azithromycin 500 mg/ Dextrose 255 mls @ 125 mls/hr IV Q24H [facility]; Protocol Stop: 05/19/19 08:44 Last Admin: 05/14/19 10:30 Dose: 125 mls/hr Documented by: Ampicillin Sodium/Sulbactam Sodium 3,000 mg/ Sodium Chloride 108 mls @ 200 mls/hr IV Q6H [facility]; Protocol Stop: 05/21/19 08:44 Last Admin: 05/14/19 09:32 Dose: 200 mls/hr Documented by: Sodium Chloride (Nss 1000ml) 1,000 mls @ 80 mls/hr IV .[id number] [facility] Stop: 05/14/19 22:25 Last Admin: 05/14/19 10:30 Dose: 80 mls/hr Documented by: Levothyroxine Sodium (Synthroid) 75 mcg PO DAILY [facility] Stop: 06/13/19 09:55 Lisinopril (Zestril) 20 mg PO DAILY [facility] Stop: 06/13/19 09:55 Magnesium Hydroxide (Milk Of Magnesia) 30 ml PO Q12H PRN PRN Reason: Constipation Stop: 06/13/19 09:55 Non-Formulary Medication (Lactobacillus Combination No.4 [Probiotic]) 1 mmu cells PO BID [facility] Stop: 06/13/19 09:55 Non-Formulary Medication (Polyethylene Glycol 3350 [Miralax]) 17 gm PO DAILY [facility] Stop: 06/13/19 09:55 Polyethylene Glycol (Miralax Powder Packet) 17 gm PO DAILY PRN PRN Reason: Constipation Stop: 06/13/19 09:55 Sennosides (Senokot) 8.6 mg PO BID [facility] Stop: 06/13/19 09:55 Home Medications Medication Instructions Recorded Confirmed acetaminophen 500 - 1,000 mg PO Q4 PRN 03/03/19 05/14/19 allopurinol 300 mg PO DAILY 03/03/19 05/14/19 aspirin 81 mg PO DAILY 03/03/19 05/14/19 carvedilol [Coreg] 25 mg PO BID 03/03/19 05/14/19 escitalopram oxalate 10 mg PO DAILY 03/03/19 05/14/19 finasteride 5 mg PO DAILY 03/03/19 05/14/19 lactobacillus combination no.4 1 mmu cells PO BID 03/03/19 05/14/19 [Probiotic] levothyroxine [Synthroid] 75 mcg PO DAILY 03/03/19 05/14/19 lisinopril 20 mg PO DAILY 03/03/19 05/14/19 polyethylene glycol 3350 [Miralax] 17 g PO DAILY 03/03/19 05/14/19 sennosides [senna] 8.6 mg PO BID 03/03/19 05/14/19 Code Status & VTE Plan Code Status DNR/DNI As per daughter/POA Loyda Shin cell phone number #[phone] VTE Prophylaxis Plan VTE Prophylaxis will be ordered: Yes (1) Hyperlipidemia Hyperlipidemia type: unspecified Qualified Code(s): E78.5 - Hyperlipidemia, unspecified (2) Hypothyroidism Hypothyroidism type: unspecified Qualified Code(s): E03.9 - Hypothyroidism, unspecified (3) Altered mental status Altered mental status type: unspecified Qualified Code(s): R41.82 - Altered mental status, unspecified (4) Left lower lobe pneumonia Pneumonia type: due to unspecified organism Qualified Code(s): J18.1 - Lobar pneumonia, unspecified organism (5) Hypertension Hypertension type: unspecified Qualified Code(s): I10 - Essential (primary) hypertension (6) Fall Encounter type: initial encounter Qualified Code(s): W19.XXXA - Unspecified fall, initial encounter
[2019-05-14] MEDS ORDERED: AMPICILLIN/SULBACTAM SOD 3,000 MG in 0.9 % SODIUM CHLORIDE 100 ML IV SCH (08:45)
[2019-05-14] MEDS ORDERED: POLYETHYLENE (MIRALAX) 17 GM PACK PO PRN (09:56)
[2019-05-14] MEDS ORDERED: ACETAMINOPHEN 325 MG TAB PO PRN (09:56)
[2019-05-14] MEDS ORDERED: ALUMINUM/MAGNESIUM SUSP 30 ML UDC PO PRN (09:56)
[2019-05-14] MEDS ORDERED: MAGNESIUM HYDROXIDE SUSP 30 ML UDC PO PRN (09:56)
[2019-05-14] MEDS ORDERED: SODIUM CHLORIDE 0.9% 1000ML 1,000 ML IV SCH (09:56)
[2019-05-14] MEDS: AZITHROMYCIN 500 MG in DEXTROSE 5% 250 ML IV SCH (10:30)
--- NOTE | 2019-05-14 13:41 | Hospitalist Progress Note ---
Date of Service May 14, 2019 Subjective Attending addendum record Reviewed: Patient had urine tract infection/UTI on 03/03/2019 resistant to Unasyn /ampicillin Sensitive to Rocephin This patient patient's UA positive for leukocyte esterase, nitrite, urine appearance cloudy Urine culture pending Patient was given 1 g of IV Rocephin in ER at 8:30 AM today We will DC Unasyn (as prior E. coli was resistant) Antibiotic changed to IV Rocephin -covering both pneumonia and possible urinary tract infection continue Zithromax for atypical coverage Joie Deleon MD Results & Data Vital Signs (Past 12 Hours) Vital Signs Temp Pulse Pulse Pulse Resp BP BP 05/14/19 11:25 36.4 C L 61 20 151/83 H 05/14/19 10:20 36.2 C L 60 16 146/80 H 05/14/19 09:33 63 16 156/95 H 05/14/19 08:29 60 16 163/89 H 05/14/19 07:05 60 16 144/74 H 05/14/19 06:09 36.8 C 85 18 167/86 H Pulse Ox 05/14/19 11:25 95 05/14/19 10:20 92 05/14/19 09:33 93 05/14/19 08:29 93 05/14/19 07:05 92 05/14/19 06:09 95
[2019-05-14] MEDS: FINASTERIDE 5 MG TAB PO SCH (14:29)
[2019-05-14] MEDS: ASPIRIN 81 MG ECTAB PO SCH (14:29)
[2019-05-14] MEDS: SENNA 8.6 MG TAB PO SCH ×2 (14:30→20:50)
[2019-05-14] MEDS: ALLOPURINOL 300 MG TAB PO SCH (14:30)
[2019-05-14] MEDS: LISINOPRIL 20 MG TAB PO SCH (14:30)
[2019-05-14] MEDS: LACTOBACILLUS ACIDOPHILUS (FLORANEX) TAB PO SCH ×2 (14:31→20:50)
[2019-05-14] MEDS: LEVOTHYROXINE SODIUM 75 MCG TABLET PO SCH (14:31)
[2019-05-14] MEDS: HEPARIN SOD 5,000 UNIT/0.5 ML VIAL SQ SCH ×2 (14:32→20:49)
[2019-05-14] MEDS: ESCITALOPRAM OXALATE 10 MG TAB PO SCH (14:32)
[2019-05-14] MEDS: CARVEDILOL 25 MG TAB PO SCH ×2 (14:32→20:50)
[2019-05-14] MEDS: POLYETHYLENE (MIRALAX) 17 GM PACK PO SCH (14:33)
[2019-05-15 06:09] LABS: Hematocrit (blood only) 39.6 % (42-52); Hemoglobin 12.9 g/dL (14.0-18.0); Mean Corpuscular Hgb Conc 32.6 g/dL (32-36); Mean Corpuscular Volume 90.2 fL (80-100); Mean Platelet Volume 9.9 fL (7.4-10.4); Platelet Count 252 K/uL (130-400); RDW Coefficient of Variation 15.9 % (11.5-14.5); RDW Standard Deviation 52.4 fL (36.4-46.3); Red Blood Count 4.39 M/uL (4.7-6.1); White Blood Count 6.94 K/uL (4.8-10.8)
[2019-05-15] MEDS: LEVOTHYROXINE SODIUM 75 MCG TABLET PO SCH (06:11)
[2019-05-15 06:46] LABS: BUN Creatinine Ratio 15.1 (10-20); Calcium 8.2 mg/dl (8.5-10.1); Est GFR (African American) 71.8; Est GFR (Non-African American) 61.9; Potassium 3.6 mmol/L (3.5-5.1)
[2019-05-15] MEDS: cefTRIAXone SODIUM 1,000 MG in DEXTROSE 5% 50 ML IV SCH (08:02)
[2019-05-15] MEDS: CARVEDILOL 25 MG TAB PO SCH ×2 (08:06→20:10)
[2019-05-15] MEDS: FINASTERIDE 5 MG TAB PO SCH (08:07)
[2019-05-15] MEDS: SENNA 8.6 MG TAB PO SCH ×2 (08:07→20:09)
[2019-05-15] MEDS: LACTOBACILLUS ACIDOPHILUS (FLORANEX) TAB PO SCH ×2 (08:07→20:11)
[2019-05-15] MEDS: HEPARIN SOD 5,000 UNIT/0.5 ML VIAL SQ SCH ×2 (08:08→20:10)
[2019-05-15] MEDS: ALLOPURINOL 300 MG TAB PO SCH (08:08)
[2019-05-15] MEDS: LISINOPRIL 20 MG TAB PO SCH (08:08)
[2019-05-15] MEDS: ASPIRIN 81 MG ECTAB PO SCH (08:08)
[2019-05-15] MEDS: POLYETHYLENE (MIRALAX) 17 GM PACK PO SCH (08:09)
[2019-05-15] MEDS: ESCITALOPRAM OXALATE 10 MG TAB PO SCH (08:09)
[2019-05-15] MEDS: AZITHROMYCIN 500 MG in DEXTROSE 5% 250 ML IV SCH (08:51)
--- NOTE | 2019-05-15 16:55 | Hospitalist Progress Note ---
Date of Service May 15, 2019 Assessment & Plan (1) Altered mental status: Symptom resolved, patient is awake and alert status to approximate baseline Patient presented with obtundation, stuporous state Altered mental status: At baseline patient is able to communicate, able to recognize family has decline in memory and cognition ( dementia) usually able to communicate/have conversation no evidence of any acute neurological event/CVA: CT head shows no acute pathology, no evidence of intracranial hemorrhage No focal neurological deficit noted in apparent/limited neuro exam altered mental status due to : Possible metabolic encephalopathy in the setting of infection/pneumonia/abnormal UA/dehydration Mental status improved to baseline with IV hydration and antibiotic treatment (2) Metabolic encephalopathy: Resolved, Presented with obtundation, metabolic encephalopathy secondary to infection, left lower lobe pneumonia, /UTI Antibiotic adjusted to IV Rocephin P.o. Zithromax for left lower lobe pneumonia No evidence of sepsis, normal white count, normal vitals, patient is afebrile Appreciate input from speech therapy, recommend to start diet with soft bite site (3) Left lower lobe pneumonia: Symmetrical infiltrate noted in left lower lobe Suspicious of pneumonia Ordered for speech evaluation-to assess aspiration risk Strict aspiration precaution Appreciate input from speech, recommend to start patient on soft bite size, strict aspiration precaution (4) Abnormal urinalysis: Urine noted to be cloudy, with positive nitrite Urine culture growing gram negative bacilli/E. coli On Rocephin (5) Fall: Report of fall/ patient was found on floor at [facility] Per nursing staff, patient did not hit his head, no weakness or pain noted on initial evaluation CT head noncontrast shows no acute intracranial pathology Cervical spine CT shows no acute change Patient does have a superficial abrasion on bilateral knees No evidence of active infection Local wound care will be provided Order for fall precaution PT OT evaluation when medically stable to participate (6) History of spontaneous intraventricular intracranial hemorrhage: History of recent spontaneous intracranial hemorrhage November this Patient was at [facility] ER on 12/06/2018,-presented with complaint of headache/confusion/decreased appetite No history of trauma CT head noncontrast showed large intra-ventricular hemorrhage in the right lateral ventricle with trace blood in left lateral and third ventricles. Chest x-ray at that time also showed infiltrateconcern for pneumonia Patient was transferred to [facility] for neurosurgery evaluation-had a week long hospital stay () Patient did not require any neurosurgery intervention at [place] Neuro imaging during the admission remained stable, without active source of bleed BP medications were optimized prior to DC. Patient mentation waxed and waned during his ICU and medical surgical floor stay At times patient was found unresponsive but repeat imaging and EEG was unremarkable Per discharge summary note, -patient's mental status usually noted to be worse, patient is more obtunded lethargic in the morning Was discharged to rehab [facility] on 12/14/2018 During this hospital admission: 05/14/[address] head noncontrast shows no evidence of intracranial hemorrhage (7) Hypertension: BP stable Continue lisinopril 20 mg daily/Coreg 25 mg twice daily-Home medication (8) Hyperlipidemia: Continue atorvastatin 40 mg daily (9) Hypothyroidism: Continue levothyroxine 75 mcg daily TSH level within normal limits (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: On finasteride-continued Urine culture growing bacteria, on empiric antibiotic IV Rocephin CODE STATUS: Discussed with patient's daughter/POA DNR DNI DVT prophylaxis: Moderate to high risk, for decline in functional and cognitive status, limited mobility Order for subcu heparin Disposition: To be determined Patient is currently resident at [facility] PT OT evaluation requested, Social service consulted for discharge planning Subjective More awake and alert today, no cough, no fever chills Patient is oriented to person and and surrounding Denies of any headache, Does not recall the events of yesterday Evaluated by's speech diet advanced to [facility] with Bite size tolerating diet, no sign of aspiration Physical Exam Constitutional: no acute distress Eyes: + anicteric sclerae Neck: normal visual inspection Respiratory: normal respiratory effort; no respiratory distress and no cough Auscultation: no crackles, no rales, no rhonchi and no wheezes Cardiovascular: RRR, no murmur, no edema Gastrointestinal (Abdomen): Inspection/Auscultation: abdomen normal to inspection and normal bowel sounds; abdomen not distended Percussion/Palpation: abdomen soft Musculoskeletal: Head/Neck/Chest: normocephalic and head atraumatic Extremities: + extremities abnormal to inspection (Small area of superficial a brasion noted on right knee, there appeared to be secondary to recent trauma/fall, small abrasion noted at left knee as well, no sign of infection, erythema noted, no active drainage) Skin: Trauma: + evidence of skin trauma and + abrasion (Bilateral knees appears to be recent injury secondary to fall) Neurologic: PERRL, EOMI, accommodation nl, no face palsy, no dysarthria Psychiatric: Orientation: alert, oriented to person and oriented to place Results & Data Vital Signs (Past 12 Hours) Vital Signs Temp Pulse Pulse Resp BP Pulse Ox 05/15/19 15:35 36.8 C 70 21 144/88 H 97 05/15/19 15:01 64 05/15/19 12:00 36.4 C L 65 18 118/77 94 05/15/19 10:51 97 05/15/19 07:24 36.4 C L 63 16 152/85 H 93 05/15/19 07:01 64 (1) Hyperlipidemia Hyperlipidemia type: unspecified Qualified Code(s): E78.5 - Hyperlipidemia, unspecified (2) Hypothyroidism Hypothyroidism type: unspecified Qualified Code(s): E03.9 - Hypothyroidism, unspecified (3) Altered mental status Altered mental status type: unspecified Qualified Code(s): R41.82 - Altered mental status, unspecified (4) Left lower lobe pneumonia Pneumonia type: due to unspecified organism Qualified Code(s): J18.1 - Lobar pneumonia, unspecified organism (5) Hypertension Hypertension type: unspecified Qualified Code(s): I10 - Essential (primary) hypertension (6) Fall Encounter type: initial encounter Qualified Code(s): W19.XXXA - Unspecified fall, initial encounter
[2019-05-16] MEDS: LEVOTHYROXINE SODIUM 75 MCG TABLET PO SCH (05:41)
[2019-05-16] MEDS: cefTRIAXone SODIUM 1,000 MG in DEXTROSE 5% 50 ML IV SCH (08:11)
[2019-05-16] MEDS ORDERED: AZITHROMYCIN 250 MG TAB PO SCH ×2 (09:00)
[2019-05-16] MEDS: ESCITALOPRAM OXALATE 10 MG TAB PO SCH (09:44)
[2019-05-16] MEDS: CARVEDILOL 25 MG TAB PO SCH (09:44)
[2019-05-16] MEDS: ALLOPURINOL 300 MG TAB PO SCH (09:45)
[2019-05-16] MEDS: LACTOBACILLUS ACIDOPHILUS (FLORANEX) TAB PO SCH (09:45)
[2019-05-16] MEDS: LISINOPRIL 20 MG TAB PO SCH (09:45)
[2019-05-16] MEDS: ASPIRIN 81 MG ECTAB PO SCH (09:45)
[2019-05-16] MEDS: POLYETHYLENE (MIRALAX) 17 GM PACK PO SCH (09:46)
[2019-05-16] MEDS: SENNA 8.6 MG TAB PO SCH (09:46)
[2019-05-16] MEDS: FINASTERIDE 5 MG TAB PO SCH (09:47)
[2019-05-16] MEDS: HEPARIN SOD 5,000 UNIT/0.5 ML VIAL SQ SCH (09:47)
[2019-05-16] MEDS ORDERED: CEFDINIR 300 MG CAP PO SCH (12:00)
--- NOTE | 2019-05-16 12:08 | Hospitalist Progress Note ---
Date of Service May 16, 2019 Assessment & Plan (1) Altered mental status: Mental status improved to approximate baseline, ambulating in hallway with rolling walker Symptom of confusion resolved, patient is awake and alert Patient presented with obtundation, stuporous state Altered mental status: At baseline patient is able to communicate, able to recognize family has decline in memory and cognition ( dementia) usually able to communicate/have conversation no evidence of any acute neurological event/CVA: CT head shows no acute pathology, no evidence of intracranial hemorrhage No focal neurological deficit noted in apparent/limited neuro exam altered mental status due to : Possible metabolic encephalopathy in the setting of infection/pneumonia/abnormal UA/dehydration Mental status improved to baseline with IV hydration and antibiotic treatment Antibiotic changed to p.o. cefdinir Stable to be discharged to [facility] today (2) Metabolic encephalopathy: Resolved, Presented with obtundation, metabolic encephalopathy secondary to infection, left lower lobe pneumonia, /UTI-E. coli Antibiotic changed to cefdinir complete 5 more days of treatment No evidence of sepsis, normal white count, normal vitals, patient is afebrile Appreciate input from speech therapy, recommend to start diet with soft bite site (3) Left lower lobe pneumonia: Symmetrical infiltrate noted in left lower lobe Suspicious of pneumonia Ordered for speech evaluation-to assess aspiration risk-at bedside evaluation patient did not show any signs or symptoms of overt aspiration, Recommend soft bite size meal, patient should remain upright during each meal Strict aspiration precaution Appreciate input from speech, recommend to start patient on soft bite size, strict aspiration precaution (4) Abnormal urinalysis: Urine noted to be cloudy, with positive nitrite Urine culture growing gram negative bacilli/E. coli Treated with IV Rocephin Antibiotic changed to PO today (5) Fall: Report of fall/ patient was found on floor at [facility] Per nursing staff, patient did not hit his head, no weakness or pain noted on initial evaluation CT head noncontrast shows no acute intracranial pathology Cervical spine CT shows no acute change Patient does have a superficial abrasion on bilateral knees No evidence of active infection Local wound care will be provided Order for fall precaution PT OT evaluation appreciated, patient can return back to [facility] (6) History of spontaneous intraventricular intracranial hemorrhage: History of recent spontaneous intracranial hemorrhage November Patient was at [facility] ER on 12/06/2018,-presented with complaint of headache/confusion/decreased appetite No history of trauma CT head noncontrast showed large intra-ventricular hemorrhage in the right lateral ventricle with trace blood in left lateral and third ventricles. Chest x-ray at that time also showed infiltrateconcern for pneumonia Patient was transferred to [facility] for neurosurgery evaluation-had a week long hospital stay () Patient did not require any neurosurgery intervention at [place] Neuro imaging during the admission remained stable, without active source of bleed BP medications were optimized prior to DC. Patient mentation waxed and waned during his ICU and medical surgical floor stay At times patient was found unresponsive but repeat imaging and EEG was unremarkable Per discharge summary note, -patient's mental status usually noted to be worse, patient is more obtunded lethargic in the morning Was discharged to rehab [facility] on 12/14/2018 During this hospital admission: 05/14/[address] head noncontrast shows no evidence of intracranial hemorrhage (7) Hypertension: BP stable Continue lisinopril 20 mg daily/Coreg 25 mg twice daily-Home medication (8) Hyperlipidemia: Continue atorvastatin 40 mg daily (9) Hypothyroidism: Continue levothyroxine 75 mcg daily TSH level within normal limits (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: On finasteride-continued Urine culture growing bacteria, on empiric antibiotic IV Rocephin CODE STATUS: Discussed with patient's daughter/POA DNR DNI DVT prophylaxis: Moderate to high risk, for decline in functional and cognitive status, limited mobility Order for subcu heparin Disposition: Stable to return back to [facility] today Subjective Awake and alert, oriented to person only (baseline pt is seen walking on the hallway with rolling walker, minimum assistance from the physical therapy Initiate breakfast and lunch without any cough, no complication no fever or chills Patient's cognitive and functional status at approximate baseline Antibiotic changed to p.o. Cefdinir Stable to be discharged back to [facility] today Physical Exam Constitutional: no acute distress Eyes: + anicteric sclerae Neck: normal visual inspection Respiratory: normal respiratory effort; no respiratory distress and no cough Auscultation: no crackles, no rales, no rhonchi and no wheezes Cardiovascular: RRR, no murmur, no edema Gastrointestinal (Abdomen): Inspection/Auscultation: abdomen normal to inspection and normal bowel sounds; abdomen not distended Percussion/Palpation: abdomen soft Musculoskeletal: Head/Neck/Chest: normocephalic and head atraumatic Extremities: + extremities abnormal to inspection (Small area of superficial abrasion noted on right knee, there appeared to be secondary to recent trauma/fall, small abrasion noted at left knee as well, no sign of infection, erythema noted, no active drainage) Skin: Trauma: + evidence of skin trauma and + abrasion (Bilateral knees appears to be recent injury secondary to fall) Neurologic: PERRL, EOMI, accommodation nl, no face palsy, no dysarthria Psychiatric: Orientation: alert and oriented to person Results & Data Vital Signs (Past 12 Hours) Vital Signs Temp Pulse Resp BP BP Pulse Ox 05/16/19 07:00 36.6 C 67 18 132/70 91 05/16/19 00:21 36.7 C 62 20 158/78 H 93 (1) Hyperlipidemia Hyperlipidemia type: unspecified Qualified Code(s): E78.5 - Hyperlipidemia, unspecified (2) Hypothyroidism Hypothyroidism type: unspecified Qualified Code(s): E03.9 - Hypothyroidism, unspecified (3) Altered mental status Altered mental status type: unspecified Qualified Code(s): R41.82 - Altered m ental status, unspecified (4) Left lower lobe pneumonia Pneumonia type: due to unspecified organism Qualified Code(s): J18.1 - Lobar pneumonia, unspecified organism (5) Hypertension Hypertension type: unspecified Qualified Code(s): I10 - Essential (primary) hypertension (6) Fall Encounter type: initial encounter Qualified Code(s): W19.XXXA - Unspecified fall, initial encounter
--- NOTE | 2019-05-16 12:25 | Discharge Summary ---
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 as patient was found to be stuporous, difficult to arouse, mental status changed from normal baseline Could not obtain any information from the patient, Very obtunded, lethargic, opened eyes briefly to voice, falls back to sleep, Right-sided facial droop, distortion of the mouth noted while patient was sleeping, gets corrected and when patient is awake, and trying to articulate Rest of the information obtained from patient's daughter and son-in-law present at bedside, ER physician notes, and nursing report from [facility] As per nursing: Patient sustained a fall around midnight today, Nursing staff found him lying on the floor Patient was arousable, mentioned that he slipped and fell Did not hit his head, noted to have bruits on both knees Patient was evaluated by nursing staff, all range of motion of the extremities were normal, patient was awake, able to answer questions appropriately This morning patient was found to be difficult to arouse, somnolent, Vital checks were within normal limit Patient was sent to [facility] ER for further evaluation No report of fever chills, no cough, no nausea vomiting or diarrhea at the [facility] Daughter mentions-she visited patient proximately 5 days back, noted that patient was always sleeping most part of the day, As he wakes up, he is alert, oriented to person only, significant memory and cognitive decline is noted after November 2018 intracranial hemorrhage Normally he is able to ambulate with a walker /able to feed himself /needs assistance in ADLs Patient's current mentation is completely different from his normal baseline as per Family and nursing staff at the [facility]: No report of difficulty swallowing , no signs /symptoms of aspiration: Coughing /chocking during meals In the ER: Vital signs at 6:09 AM Temperature 36.8/heart rate 85/respiratory rate 18/blood pressure 167/87 Pulse oximetry 95% in room air White count normal, electrolytes essentially within normal limit except for mild elevation of BUN -suggestive of possible dehydration/creatinine at approximate baseline Chest x-ray shows left lower lobe infiltrate CT head noncontrast shows no evidence of intracranial hemorrhage, no acute pathology Principal Diagnosis Confusion/metabolic encephalopathy/urinary tract infection/left lower lobe pneumonia Discharge Exam Constitutional no acute distress Eyes + anicteric sclerae Neck normal visual inspection Respiratory normal respiratory effort; no respiratory distress and no cough Auscultation: no crackles, no rales, no rhonchi and no wheezes Cardiovascular RRR, no murmur, no edema Gastrointestinal (Abdomen) Inspection/Auscultation: abdomen normal to inspection and normal bowel sounds; abdomen not distended Percussion/Palpation: abdomen soft Musculoskeletal Head/Neck/Chest: normocephalic and head atraumatic Extremities: + extremities abnormal to inspection (Small area of superficial abrasion noted on right knee, there appeared to be secondary to recent trauma/fall, small abrasion noted at left knee as well, no sign of infection, erythema noted, no active drainage) Skin Trauma: + evidence of skin trauma and + abrasion (Bilateral knees appears to be recent injury secondary to fall) Neurologic PERRL, EOMI, accommodation nl, no face palsy, no dysarthria Psychiatric Orientation: alert and oriented to person Discharge Data Allergies Allergy/AdvReac Type Severity Reaction Status Date / Time morphine Allergy Unknown Verified 05/14/19 06:32 Consultations 05/14/19 07:42 ED Decision to Admit Stat 05/14/19 09:56 Consult Case Management - Discharge Planning Routine Ordered Studies 05/14/19 06:07 CT cervical spine wo con Stat CT head/brain wo con Stat Hospital Course (1) Altered mental status: Mental status improved to approximate baseline, ambulating in hallway with rolling walker Symptom of confusion resolved, patient is awake and alert Patient presented with obtundation, stuporous state Altered mental status: At baseline patient is able to communicate, able to recognize family has decline in memory and cognition ( dementia) usually able to communicate/have conversation no evidence of any acute neurological event/CVA: CT head shows no acute pathology, no evidence of intracranial hemorrhage No focal neurological deficit noted in apparent/limited neuro exam altered mental status due to : Possible metabolic encephalopathy in the setting of infection/pneumonia/abnormal UA/dehydration Mental status improved to baseline with IV hydration and antibiotic treatment Antibiotic changed to p.o. cefdinir Stable to be discharged to [facility] today (2) Metabolic encephalopathy: Resolved, Presented with obtundation, metabolic encephalopathy secondary to infection, left lower lobe pneumonia, /UTI-E. coli Antibiotic changed to cefdinir complete 5 more days of treatment No evidence of sepsis, normal white count, normal vitals, patient is afebrile Appreciate input from speech therapy, recommend to start diet with soft bite site (3) Left lower lobe pneumonia: Symmetrical infiltrate noted in left lower lobe Suspicious of pneumonia Ordered for speech evaluation-to assess aspiration risk-at bedside evaluation patient did not show any signs or symptoms of overt aspiration, Recommend soft bite size meal, patient should remain upright during each meal Strict aspiration precaution Appreciate input from speech, recommend to start patient on soft bite size, strict aspiration precaution (4) Abnormal urinalysis: Urine noted to be cloudy, with positive nitrite Urine culture growing gram negative bacilli/E. coli Treated with IV Rocephin Antibiotic changed to PO today (5) Fall: Report of fall/ patient was found on floor at [facility] Per nursing staff, patient did not hit his head, no weakness or pain noted on initial evaluation CT head noncontrast shows no acute intracranial pathology Cervical spine CT shows no acute change Patient does have a superficial abrasion on bilateral knees No evidence of active infection Local wound care will be provided Order for fall precaution PT OT evaluation appreciated, patient can return back to [facility] (6) History of spontaneous intraventricular intracranial hemorrhage: History of recent spontaneous intracranial hemorrhage November this year Patient was at [facility] ER on 12/06/2018,-presented with complaint of headache/confusion/decreased appetite No history of trauma CT head noncontrast showed large intra-ventricular hemorrhage in the right lateral ventricle with trace blood in left lateral and third ventricles. Chest x-ray at that time also showed infiltrateconcern for pneumonia Patient was transferred to [facility] for neurosurgery evaluation-had a week long hospital stay () Patient did not require any neurosurgery intervention at [place] Neuro imaging during the admission remained stable, without active source of bleed BP medications were optimized prior to DC. Patient mentation waxed and waned during his ICU and medical surgical floor stay At times patient was found unresponsive but repeat imaging and EEG was unremarkable Per discharge summary note, -patient's mental status usually noted to be worse, patient is more obtunded lethargic in the morning Was discharged to rehab [facility] on 12/14/2018 During this hospital admission: 05/14/[address] head noncontrast shows no evidence of intracranial hemorrhage (7) Hypertension: BP stable Continue lisinopril 20 mg daily/Coreg 25 mg twice daily-Home medication (8) Hyperlipidemia: Continue atorvastatin 40 mg daily (9) Hypothyroidism: Continue levothyroxine 75 mcg daily TSH level within normal limits (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: On finasteride-continued Urine culture growing bacteria, on empiric antibiotic IV Rocephin CODE STATUS: Discussed with patient's daughter/POA DNR DNI DVT prophylaxis: Moderate to high risk, for decline in functional and cognitive status, limited mobility Order for subcu heparin Disposition: Stable to return back to [facility] today Total Time Total Time Spent Total Time Spent (In Minutes): Approximate 45 minutes Total Time Includes: Examination of the Patient, Discharge Planning and Medication Reconciliation Discharge Plan Discharge Items Patient Disposition: Home - Home Health Services Reason For Visit: ALTERED MENTAL STATUS/LETHARGY Discharge Diagnosis: Confusion/metabolic encephalopathy/urinary tract infection/left lower lobe pneumonia Discharge Goals: Decrease discomfort, Diagnostic testing and Therapeutic intervention Activity: As commented below Activity Comment: Continue physical therapy/Occupational Therapy at [facility] Non-emergency contact: Primary Care Provider Call non-emergency contact if: you have any medication questions [facility] - Diet: Heart Healthy Diet Texture: Dental soft (bite-sized) Diet Comment: Aspiration precaution/ Addtl Provider Instructions: Follow Up with physician/Dr. Stockton at [facility] Diet soft, bite site Needs to be fully alert and upright during meals Prescriptions: New cefdinir 300 mg Capsule 300 mg PO BID 5 Days Qty: 10 RF: 0 Continued carvedilol [Coreg] 25 mg Tablet 25 mg PO BID RF: 0 sennosides [senna] 8.6 mg Tablet 8.6 mg PO BID RF: 0 lisinopril 20 mg Tablet 20 mg PO DAILY RF: 0 aspirin 81 mg Tablet,Delayed Release (Dr/Ec) 81 mg PO DAILY RF: 0 acetaminophen 500 mg Tablet 500 - 1,000 mg PO Q4 PRN (Reason: pain/fever) RF: 0 levothyroxine [Synthroid] 75 mcg Tablet 75 mcg PO DAILY RF: 0 allopurinol 300 mg Tablet 300 mg PO DAILY RF: 0 polyethylene glycol 3350 [Miralax] 17 gram/dose Powder 17 g PO DAILY RF: 0 finasteride 5 mg Tablet 5 mg PO DAILY RF: 0 escitalopram oxalate 10 mg Tablet 10 mg PO DAILY RF: 0 Probiotic 3 billion cell Capsule 1 mmu cells PO BID RF: 0 Stand-Alone Forms: [facility]/Other Patient Handouts: Diet Soft Dc Discharge Orders: Discharge Order (Routine); Ordered 05/16/19 Ordered By: Joie Deleon Admission Data Admit Date/Time: 05/14/19 08:32 Attending Provider: Joie Deleon Admit Provider: Joie Deleon [facility] Other Providers: Joie Deleon Service: Medical
== END 2019-05-16 15:45 | disposition home health service (06) | DRG 193 ==
LOC: ED 06:02 → 2N 08:32

== ENCOUNTER 2019-06-23 10:05 | Inpatient (IN) ==
[2019-06-23 10:32] LABS: Basophils # (auto) 0.09 K/uL (0-0.2); Basophils % (auto) 1.3 %; Eosinophils # (auto) 0.42 K/uL (0-0.5); Immature Granulocytes # (auto) 0.01 K/uL (0.00-0.02); Immature Granulocytes % (auto) 0.1 %; Lymphocytes % (auto) 21.5 %; Mean Corpuscular Hgb Conc 33.3 g/dL (32-36); Mean Corpuscular Volume 91.1 fL (80-100); Mean Platelet Volume 9.5 fL (7.4-10.4); Monocytes # (auto) 0.65 K/uL (0.11-0.59); Monocytes % (auto) 9.3 %; Neutrophils # (auto) 4.32 K/uL (1.4-6.5); Neutrophils % (auto) 61.8 %; Platelet Count 254 K/uL (130-400); RDW Coefficient of Variation 16.5 % (11.5-14.5); RDW Standard Deviation 54.7 fL (36.4-46.3); Red Blood Count 4.61 M/uL (4.7-6.1); White Blood Count 6.99 K/uL (4.8-10.8)
--- NOTE | 2019-06-23 10:41 | XRay Report ---
XR chest 1V portable CLINICAL HISTORY: Pt left sided weakness COMPARISON STUDY: 05/14/2019 FINDINGS: The heart is mildly enlarged. Is a left subclavian dual-chamber central venous pacemaker. T here is no lobar consolidation. There are no significant pleural effusions. There is slight elevation of interstitium, similar to prior studies and likely chronic.[ IMPRESSION: Mild cardiomegaly and chronic interstitial thickening. No evidence of acute parenchymal c onsolidation Electronically signed by: Gage Combs M.D. 06/23/2019 10:39 AM
[2019-06-23 10:48] LABS: Alanine Aminotransferase 21 U/L (12-78); Aspartate Aminotransferase 20 U/L (15-37); BUN Creatinine Ratio 16.5 (10-20); Blood Urea Nitrogen 22 mg/dl (7-18); Calcium 8.7 mg/dl (8.5-10.1); Carbon Dioxide 28 mmol/L (21-32); Chloride 110 mmol/L (98-107); Est GFR (African American) 54.5; Est GFR (Non-African American) 47.1; Glucose 143 mg/dl (70-99); INR 1.1 (0.9-1.1); Magnesium 2.4 mg/dl (1.8-2.4); Partial Thromboplastin Time 25.9 Seconds (21.0-31.0); Potassium 3.9 mmol/L (3.5-5.1); Prothrombin Time 11.4 Seconds (9.0-12.0); Sodium 143 mmol/L (136-145)
[2019-06-23] MEDS ORDERED: OPTIRAY 320 125ml IV PRN ×2 (10:48→14:01)
[2019-06-23 10:49] LABS: iSTAT Creatinine 1.2 mg/dl (0.6-1.3); iSTAT Hemoglobin 14.3 g/dl (14.0-18.0); iSTAT Ionized Calcium 1.17 mmol/l (1.12-1.32); iSTAT Potassium 3.9 mEq/L (3.3-5.0)
[2019-06-23 10:53] LABS: Albumin Globulin Ratio 0.7 (0.9-2); Alkaline Phosphatase 134 U/L (45-117); Bilirubin,Total 0.7 mg/dl (0.2-1); Creatine Kinase MB < 1.0 ng/ml (0.5-3.6); Globulin 4.2 gm/dl (2.5-4.0); Total Protein 7.2 gm/dl (6.4-8.2); Troponin I < 0.015 ng/ml (0-0.045)
--- NOTE | 2019-06-23 10:56 | CT Scan Report ---
CT head/brain wo con CLINICAL HISTORY: Unresponsive patient. Confusion. Possible stroke. COMPARISON STUDY: May 14, 2019 TECHNIQUE: Axial CT of the brain is performed from the vertex to the skull base. IV contrast was not administered for this examination. A dose lowering technique was utilized adhering to the principles of ALARA. CT DOSE: FINDINGS: No intra or extra-axial mass lesions are visualized. There is no CT evidence of acute cortical infarc tion. There is no evidence of midline shift. There is no acute hemorrhage. No calvarial fractures ar e visualized. There are patchy white matter hypodensities likely on a small vessel basis. There are multiple scatte red lacunar infarcts, similar to the preceding study. There is mild ventricular dilatation, finding which is felt to be secondary to find loss. There is polypoid mucosal thickening involving the ethmoid sinuses. There is a left nasal polyp. Ther e is mucosal thickening within the frontal sinus. These finding remains stable. IMPRESSION: No acute intracranial findings Electronically signed by: Gage Combs M.D. 06/23/2019 10:54 AM
--- NOTE | 2019-06-23 10:58 | CT Scan Report ---
CT angio head w con CLINICAL HISTORY: Pt left sided weakness POSSIBLE ACUTE STROKE TECHNIQUE: CT angiography of the head was performed in a dynamic helical fashion during intravenous a dministration of 119 cc of Optiray 320. MIP imaging was performed. A dose lowering technique was util ized adhering to the principles of ALARA. CT DOSE: 1206.93 mGy.cm COMPARISON STUDY: Noncontrast head CT performed the same day FINDINGS: There are no lesion suspicious for aneurysm. There are no major intracranial branch occlusi ons. The dural venous sinuses appear patent. There is moderate white matter disease with scattered lacunar infarcts. There are no pathologically e nhancing masses. There is paranasal sinus disease. There is a small left nasal polyp IMPRESSION: 1. Unremarkable CT angiography of the brain. Electronically signed by: Gage Combs M.D. 06/23/2019 10:57 AM
--- NOTE | 2019-06-23 11:06 | CT Scan Report ---
CT angio neck with con CLINICAL HISTORY: Left-sided weakness. Possible stroke. COMPARISON STUDY: No previous studies for comparison. TECHNIQUE: CT angiography was performed from the aortic arch to the skull base. MIP imaging was perfo rmed. The patient was scanned in a dynamic helical fashion during intravenous administration of 119 c c of Optiray 320. A dose lowering technique was utilized adhering to the principles of ALARA. CT DOSE: Technique: CT angiogram of the carotid and vertebral arteries was obtained using intravenous contrast and 3-D reconstruction. NASCET criteria was utilized. Findings: The right carotid revealed no evidence of aneurysm and no evidence of dissection. There is no evidenc e of hemodynamic significant stenosis. The left carotid revealed no evidence of hemodynamic significant stenosis. There is no evidence of an eurysm. There is no evidence of dissection. There is no evidence of hemodynamically significant vertebral stenosis. There is no evidence of verte bral dissection. There are mildly enlarged mediastinal lymph nodes. There is an ulcerated plaque arising from the aortic arch. IMPRESSION: 1. No evidence of hemodynamically significant carotid or vertebral artery stenosis. No evidence of di ssection. 2. Mildly enlarged mediastinal lymph nodes 3. 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 06/23/2019 11:05 AM
[2019-06-23] MEDS ORDERED: SODIUM CHLORIDE 0.9% 1000ML 500 ML IV ONE ×2 (11:38→12:34)
[2019-06-23] MEDS ORDERED: LEVALBUTEROL HCL 1.25 MG/3 ML NEB NEB STA ×2 (12:24)
[2019-06-23] MEDS: LEVALBUTEROL HCL 1.25 MG/3 ML NEB NEB STA (12:37)
--- NOTE | 2019-06-23 14:13 | CT Scan Report ---
CT angio chest PE protocol HISTORY: 89 years-old Male with PE. Acute shortness of breath TECHNIQUE: Multiple CTA images of the chest were obtained after the intravenous administration of 119 ml Optiray 320. Coronal and sagittal MIPS were obtained from the axial data set and were submitted for review. All measurements were obtained according to NASCET criteria. A dose lowering technique w as utilized adhering to the principles of ALARA. COMPARISON: CTA head neck of same day, chest radiograph of same day. FINDINGS: CTA: Heart is moderately enlarged. Trace pericardial effusion. Coronary arterial calcifications are noted. No thoracic aortic aneurysm. Ulcerative plaque arising from the aortic arch redemonstrated. Mixed pl aque formation of the aortic arch with patency of the imaged great vessels. Pulmonary arterial tree i s opacified to the level of the subsegmental branches. The segmental and subsegmental branches howeve r are suboptimally visualized secondary to respiratory motion. No filling defects identified to sugge st pulmonary thromboembolic disease. Left subclavian pacer is noted with leads overlying the right at rium and right ventricle. CT CHEST: No focal thyroid nodule. Calcified subcarinal lymph nodes. Prominent and mildly enlarged paratracheal lymph nodes are seen measuring up to 1.2 cm on the right. Prominent AP window lymph nodes are also p resent. Trace left pleural effusion. No pneumothorax. Mild dependent subsegmental bibasilar opacities suggest atelectasis with mild bibasilar bronchial wall thickening. No focal airspace consolidation t ypical for pneumonia. No suspicious pulmonary nodules or masses. Calcified granulomata of the superio r segment left lower lobe and inferior segment lingula. Central airways appear patent. Cholecystectomy. Nonspecific mild thickening of the adrenal glands. Colonic diverticulosis. Gynecomas tia. Soft tissues are unremarkable. Degenerative changes of the shoulders and spine. IMPRESSION: 1. Cardiomegaly without evidence of pulmonary thromboembolic disease. 2. 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 3. Subsegmental bibasilar opacities suggest atelectasis. 4. Prominent and mildly enlarged nonspecific mediastinal adenopathy. 5. Prior granulomatous disease. The above report was generated using voice recognition software. It may contain grammatical, syntax o r spelling errors. Electronically signed by: Jackson Torres M.D. 06/23/2019 2:12 PM
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
[2019-06-23 19:15] LABS: Appearance Urine Clear (Clear); Bacteria Urine Automated 3+ (Negative); Bilirubin Urine Negative (Negative); Blood Urine Trace (Negative); Color Urine Yellow; Epithelial Cell Urine Auto 0-5 /lpf (0-5); Glucose Urine UA Negative (Negative); Ketones Urine Negative (Negative); Leukocyte Esterase Urine 1+ (Negative); Nitrite Urine Positive (Negative); Protein Urine Trace (Negative); RBC Urine Automated 0-4 /hpf (0-4); Specific Gravity Urine > 1.045 (1.000-1.030); Urobilinogen Urine Negative (Negative); WBC Urine Automated >30 /hpf (0-5)
[2019-06-23] MEDS ORDERED: ACETAMINOPHEN 500 MG TAB PO PRN (20:20)
[2019-06-23] MEDS: CARVEDILOL 25 MG TAB PO SCH (20:51)
[2019-06-23] MEDS: LISINOPRIL 20 MG TAB PO SCH (20:51)
[2019-06-23] MEDS: SACCHAROMYCES BOULARDII 250 MG CAP PO SCH (20:51)
[2019-06-23] MEDS: AMLODIPINE BESYLATE 5 MG TAB PO SCH (20:52)
[2019-06-23] MEDS: SENNA 8.6 MG TAB PO SCH (20:52)
[2019-06-24] MEDS: LEVOTHYROXINE SODIUM 75 MCG TABLET PO SCH (06:17)
[2019-06-24] MEDS: SENNA 8.6 MG TAB PO SCH (07:57)
[2019-06-24] MEDS: SACCHAROMYCES BOULARDII 250 MG CAP PO SCH ×2 (08:10→21:13)
[2019-06-24] MEDS: ATORVASTATIN 40 MG TAB PO SCH (08:10)
[2019-06-24] MEDS: CARVEDILOL 25 MG TAB PO SCH ×2 (08:10→21:13)
[2019-06-24] MEDS: ESCITALOPRAM OXALATE 10 MG TAB PO SCH (08:10)
[2019-06-24] MEDS: ALLOPURINOL 300 MG TAB PO SCH (08:11)
[2019-06-24] MEDS: LISINOPRIL 20 MG TAB PO SCH ×2 (08:11→21:14)
[2019-06-24] MEDS: ASPIRIN 81 MG ECTAB PO SCH (08:11)
[2019-06-24] MEDS: FINASTERIDE 5 MG TAB PO SCH (08:11)
[2019-06-24] MEDS ORDERED: POLYETHYLENE (MIRALAX) 17 GM PACK PO SCH (09:00)
--- NOTE | 2019-06-24 09:33 | Emergency Department Note ---
Entered by Ludy Portillo acting as a scribe for History of Present Illness General Chief complaint: Neuro Symptoms/Deficit Stated complaint: unresponsive / eval Source: RN notes reviewed Mode of arrival: EMS Limitations: altered mental status History of Present Illness Provider complaint: AMS Onset (ago): hour(s) (this am) Location: head Pain Consistency: + other (episode) Quality: + other (unresponsive) Associated symptoms: + other (hypoxic) The patient is a n 89 year old male who presents to the ER via EMS from [facility] for an evaluation of altered mental status. The RN reports that the patien t was hypoxic and unresponsive at the custodial earlier today. HPI is limited secondary to AMS. Home Medications Home Medications Medication Instructions Recorded Confirmed Type acetaminophen 500 - 1,000 mg PO Q4 PRN 03/03/19 06/23/19 History allopurinol 300 mg PO DAILY 03/03/19 06/23/19 History aspirin 81 mg PO DAILY 03/03/19 06/23/19 History carvedilol [Coreg] 25 mg PO BID 03/03/19 06/23/19 History escitalopram oxalate 10 mg PO DAILY 03/03/19 06/23/19 History finasteride 5 mg PO DAILY 03/03/19 06/23/19 History levothyroxine [Synthroid] 75 mcg PO DAILY 03/03/19 06/23/19 History lisinopril 20 mg PO BID 03/03/19 06/23/19 History polyethylene glycol 3350 [Miralax] 17 g PO DAILY 03/03/19 06/23/19 History sennosides [senna] 8.6 mg PO BID 03/03/19 06/23/19 History Saccharomyces boulardii 250 mg PO BID 06/23/19 06/23/19 History amlodipine 5 mg PO HS 06/23/19 06/23/19 History atorvastatin 40 mg PO DAILY 06/23/19 06/23/19 History Allergies Allergy/AdvReac Type Severity Reaction Status Date / Time morphine Allergy Unknown Verified 05/14/19 06:32 Past Med/Surg History Medical History Constipation (Resolved) UTI (urinary tract infection) (Inactive) BPH w urinary obs/LUTS Hyperlipidemia Hypertension Hypothyroidism Intracranial hemorrhage Nontraumatic, 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 ) Physical Exam Vital Signs Vital Signs - 24 hr 06/23/19 10:18 06/23/19 10:20 06/23/19 10:28 Temperature 36.6 C Temperature Source Oral Sepsis Recent Fever Within 48 Hours No Sepsis New/Unexplained Change in Mental Status No Sepsis Action Taken by Nursing No Action Required Pulse Rate 62 65 Pulse Rate from SpO2 Sensor 64 Pulse Rhythm Regular Pulse Strength Normal Respiratory Rate 16 16 Respiratory Effort / Characteristics Non-Labored Spontaneous Respiratory Depth Normal Respiratory Pattern Regular Blood Pressure 131/76 127/81 Blood Pressure Mean 94 96 Blood Pressure Position Lying Pulse Oximetry 95 95 Oxygen Delivery Method Nasal Cannula Nasal Cannula Oxygen Flow Rate 2 2 06/23/19 10:51 06/23/19 11:00 06/23/19 11:17 Temperature Temperature Source Sepsis Recent Fever Within 48 Hours Sepsis New/Unexplained Change in Mental Status Sepsis Action Taken by Nursing Pulse Rate 60 Pulse Rate from SpO2 Sensor 63 60 60 Pulse Rhythm Pulse Strength Respiratory Rate 14 Respiratory Effort / Characteristics Respiratory Depth Respiratory Pattern Blood Pressure 141/80 H Blood Pressure Mean 100 Blood Pressure Position Pulse Oximetry 95 95 95 Oxygen Delivery Method Nasal Cannula Nasal Cannula Oxygen Flow Rate 2 2 06/23/19 11:30 06/23/19 11:31 06/23/19 12:00 Temperature Temperature Source Sepsis Recent Fever Within 48 Hours Sepsis New/Unexplained Change in Mental Status Sepsis Action Taken by Nursing Pulse Rate 60 63 60 Pulse Rate from SpO2 Sensor 63 59 L 60 Pulse Rhythm Pulse Strength Respiratory Rate 17 16 20 Respiratory Effort / Characteristics Respiratory Depth Respiratory Pattern Blood Pressure 118/79 Blood Pressure Mean 92 Blood Pressure Position Pulse Oximetry 96 96 94 Oxygen Delivery Method Oxygen Flow Rate 06/23/19 12:01 06/23/19 12:02 06/23/19 12:30 Temperature Temperature Source Sepsis Recent Fever Within 48 Hours Sepsis New/Unexplained Change in Mental Status Sepsis Action Taken by Nursing Pulse Rate 60 61 67 Pulse Rate from SpO2 Sensor 60 57 L 64 Pulse Rhythm Pulse Strength Respiratory Rate 15 14 18 Respiratory Effort / Characteristics Respiratory Depth Respiratory Pattern Blood Pressure 147/83 H 145/87 H Blood Pressure Mean 104 106 Blood Pressure Position Pulse Oximetry 96 95 96 Oxygen Delivery Method Nasal Cannula Oxygen Flow Rate 2 06/23/19 12:31 06/23/19 12:38 06/23/19 13:00 Temperature Temperature Source Sepsis Recent Fever Within 48 Hours Sepsis New/Unexplained Change in Mental Status Sepsis Action Taken by Nursing Pulse Rate 64 64 Pulse Rate from SpO2 Sensor 64 64 Pulse Rhythm Pulse Strength Respiratory Rate 20 18 12 Respiratory Effort / Characteristics Non-Labored Spontaneous Respiratory Depth Respiratory Pattern Blood Pressure 132/85 Blood Pressure Mean 100 Blood Pressure Position Pulse Oximetry 94 96 100 Oxygen Delivery Method Nasal Cannula Oxygen Flow Rate 2 06/23/19 13:30 Temperature Temperature Source Sepsis Recent Fever Within 48 Hours Sepsis New/Unexplained Change in Mental Status Sepsis Action Taken by Nursing Pulse Rate 64 Pulse Rate from SpO2 Sensor 64 Pulse Rhythm Pulse Strength Respiratory Rate 15 Respiratory Effort / Characteristics Respiratory Depth Respiratory Pattern Blood Pressure 126/78 Blood Pressure Mean 94 Blood Pressure Position Pulse Oximetry 99 Oxygen Delivery Method Oxygen Flow Rate GENERAL: Follows commands but is non-verbal. HENT: Normocephalic, atraumatic. Oropharynx unremarkable. EYES: Normal conjunctiva. Sclera non-icteric. NECK: Supple. No nuchal rigidity. FROM. No JVD. RESPIRATORY: Clear to auscultation. CARDIAC: Regular rate, normal rhythm. Extremities warm and well perfused. Pulses equal. ABDOMEN: Soft, non-distended. No tenderness to palpation. No rebound or guarding. No masses. RECTAL: Deferred. MUSCULOSKELETAL: Chest examination reveals no tenderness. The back is symmetrical on inspection without obvious abnormality. There is no CVA tenderness to palpation. No joint edema. LOWER EXTREMITIES: Calves are equal size bilaterally and non-tender. No edema. No discoloration. NEURO: Follows commands but is non-verbal. SKIN: No rash or jaundice noted. Course 1025: Past medical records reviewed. The patient was evaluated in room B12B. A limited history and physical examination was performed. 1220: The patient is now talking. Per family, the patient is at his baseline. I discussed his results with him and the family. They are agreeable with the treatment plan. 1233: I discussed the patient's case with Millicent Javier PA-C [facility] Hospitalist. She and Dr. Mg will evaluate the patient for further management. Administered Medications Allopurinol (Zyloprim) 300 mg PO DAILY JOVANY Stop: 07/24/19 08:59 Last Admin: 06/24/19 08:11 Dose: 300 mg Documented by: [id number] Amlodipine Besylate (Norvasc) 5 mg PO HS JOVANY Stop: 07/23/19 20:59 Last Admin: 06/23/19 20:52 Dose: 5 mg Documented by: [id number] Aspirin (Ecotrin Ectab) 81 mg PO DAILY JOVANY Stop: 07/24/19 08:59 Last Admin: 06/24/19 08:11 Dose: 81 mg Documented by: [id number] Atorvastatin Calcium (Lipitor) 40 mg PO DAILY JOVANY Stop: 07/24/19 08:59 Last Admin: 06/24/19 08:10 Dose: 40 mg Documented by: [id number] Carvedilol (Coreg) 25 mg PO BID JOVANY Stop: 07/23/19 20:59 Last Admin: 06/24/19 08:10 Dose: 25 mg Documented by: [id number] Admin: 06/23/19 20:51 Dose: 25 mg Documented by: [id number] Escitalopram Oxalate (Lexapro Tab) 10 mg PO DAILY JOVANY Stop: 07/24/19 08:59 Last Admin: 06/24/19 08:10 Dose: 10 mg Documented by: [id number] Finasteride (Proscar) 5 mg PO DAILY JOVANY Stop: 07/24/19 08:59 Last Admin: 06/24/19 08:11 Dose: 5 mg Documented by: [id number] Ceftriaxone Sodium 2,000 mg/ (Dextrose) 70 mls @ 100 mls/hr IV Q24H JOVANY; Protocol Stop: 06/29/19 09:59 Last Infusion: 06/24/19 11:50 Dose: 0 mls/hr Documented by: [id number] Admin: 06/24/19 10:38 Dose: 100 mls/hr Documented by: [id number] Ioversol (Optiray 320 125ml) 119 ml IV ONCE PRN PRN Reason: Interaction Checking Stop: 06/27/19 10:47 Last Admin: 06/23/19 10:48 Dose: 119 ml Documented by: [id number] Ioversol (Optiray 320 125ml) 110 ml IV ONCE PRN PRN Reason: Interaction Checking Stop: 06/27/19 14:00 Last Admin: 06/23/19 14:02 Dose: 110 ml Documented by: [id number] Levothyroxine Sodium (Synthroid) 75 mcg PO DAILYBB [facility] Stop: 07/24/19 06:29 Last Admin: 06/24/19 06:17 Dose: 75 mcg Documented by: [id number] Lisinopril (Zestril) 20 mg PO BID [facility] Stop: 07/23/19 20:59 Last Admin: 06/24/19 08:11 Dose: 20 mg Documented by: [id number] Admin: 06/23/19 20:51 Dose: 20 mg Documented by: [id number] Polyethylene Glycol (Miralax Powder Packet) 17 gm PO DAILY [facility] Stop: 07/24/19 08:59 Last Admin: 06/24/19 07:57 Dose: Not Given Documented by: [id number] Saccharomyces Boulardii (Florastor) 250 mg PO BID [facility] Stop: 07/23/19 20:59 Last Admin: 06/24/19 08:10 Dose: 250 mg Documented by: [id number] Admin: 06/23/19 20:51 Dose: 250 mg Documented by: [id number] Sennosides (Senokot) 8.6 mg PO BID [facility] Stop: 07/23/19 20:59 Last Admin: 06/24/19 07:57 Dose: Not Given Documented by: [id number] Admin: 06/23/19 20:52 Dose: Not Given Documented by: [id number] Discontinued Medications Sodium Chloride (Nss 1000ml) 500 mls @ 999 mls/hr IV .Q31M ONE Stop: 06/23/19 12:08 Last Infusion: 06/23/19 12:30 Dose: 0 mls/hr Documented by: [id number] Admin: 06/23/19 11:50 Dose: 999 mls/hr Documented by: [id number] Sodium Chloride (Nss 1000ml) 500 mls @ 999 mls/hr IV .Q31M ONE Stop: 06/23/19 13:04 Last Infusion: 06/23/19 15:09 Dose: 0 mls/hr Documented by: [id number] Admin: 06/23/19 14:00 Dose: 999 mls/hr Documented by: [id number] Levalbuterol HCl (Xopenex 1.25mg/3ml Neb) 1.25 mg NEB NOW STA Stop: 06/23/19 12:24 Last Admin: 06/23/19 12:37 Dose: 1.25 mg Documented by: [id number] Admin: 06/23/19 12:37 Dose: 1.25 mg Documented by: [id number] Levalbuterol HCl (Xopenex 1.25mg/3ml Neb) 1.25 mg NEB NOW STA Stop: 06/23/19 12:25 Last Admin: 06/23/19 14:45 Dose: Not Given Documented by: [id number] Levalbuterol HCl (Xopenex 1.25mg/3ml Neb) 1.25 mg NEB NOW STA Stop: 06/23/19 12:25 Last Admin: 06/23/19 12:37 Dose: 1.25 mg Documented by: [id number] Medical Decision Making Differential Diagnosis Differential diagnosis includes: toxic, metabolic, infectious, traumatic, cardiac, neurologic, hematologic, psychiatric and inflammatory etiologies. Medical Records Attestation: I reviewed the patient's medical records. Home Medications Current Medication List: was personally reviewed by me Laboratory Data Attestation: I reviewed the patient's lab results. Result diagrams: 06/23/19 10:21 06/23/19 10:21 Lab Results 06/23/19 06/23/19 06/23/19 Range/Units 10:21 10:21 10:21 WBC 6.99 (4.8-10.8) K/uL RBC 4.61 L (4.7-6.1) M/uL Hgb 14.0 (14.0-18.0) g/dL POC Hgb (14.0-18.0) g/dl Hct 42.0 (42-52) % POC Hct (42-52) % MCV 91.1 (80-100) fL MCH 30.4 (25-34) pg MCHC 33.3 (32-36) g/dL RDW Std Deviation 54.7 H (36.4-46.3) fL RDW Coeff of Mandi 16.5 H (11.5-14.5) % Plt Count 254 (130-400) K/uL MPV 9.5 (7.4-10.4) fL Immature Gran % (Auto) 0.1 % Neut % (Auto) 61.8 % Lymph % (Auto) 21.5 % [place] % (Auto) 9.3 % Eos % (Auto) 6.0 % Baso % (Auto) 1.3 % Immature Gran # (Auto) 0.01 (0.00-0.02) K/uL Neut # (Auto) 4.32 (1.4-6.5) K/uL Lymph # (Auto) 1.50 (1.2-3.4) K/uL [place] # (Auto) 0.65 H (0.11-0.59) K/uL Eos # (Auto) 0.42 (0-0.5) K/uL Baso # (Auto) 0.09 (0-0.2) K/uL PT 11.4 (9.0-12.0) Seconds INR 1.1 (0.9-1.1) APTT 25.9 (21.0-31.0) Seconds PTT Ratio 1.0 POC Sodium (135-144) mEq/L Sodium 143 (136-145) mmol/L POC Potassium (3.3-5.0) mEq/L Potassium 3.9 (3.5-5.1) mmol/L POC Chloride (101-112) mEq/L Chloride 110 H (98-107) mmol/L Carbon Dioxide 28 (21-32) mmol/L POC Total CO2 (24-31) mEq/l Anion Gap 5.0 (3-11) POC Anion Gap (16-25) mmol/L POC BUN (7-18) mg/dl BUN 22 H (7-18) mg/dl Creatinine 1.33 (0.6-1.4) mg/dl POC Creatinine (0.6-1.3) mg/dl Est Cr Clr Drug Dosing 46.0 ml/min Est GFR ( Amer) 54.5 Est GFR (Non-Af Amer) 47.1 BUN/Creatinine Ratio 16.5 (10-20) Glucose 143 H (70-99) mg/dl POC Glucose (other) (70-99) mg/dl Calcium 8.7 (8.5-10.1) mg/dl POC Ioniz Calcium Jake (1.12-1.32) mmol/l Magnesium 2.4 (1.8-2.4) mg/dl Total Bilirubin 0.7 (0.2-1) mg/dl AST 20 (15-37) U/L ALT 21 (12-78) U/L Alkaline Phosphatase 134 H (45-117) U/L CK-MB (CK-2) < 1.0 (0.5-3.6) ng/ml CK/CKMB % Calc Not Reportable Troponin I < 0.015 (0-0.045) ng/ml Total Protein 7.2 (6.4-8.2) gm/dl Albumin 3.0 L (3.4-5.0) gm/dl Globulin 4.2 H (2.5-4.0) gm/dl Albumin/Globulin Ratio 0.7 L (0.9-2) // Range/Units 10:35 WBC (4.8-10.8) K/uL RBC (4.7-6.1) M/uL Hgb (14.0-18.0) g/dL POC Hgb 14.3 (14.0-18.0) g/dl Hct (42-52) % POC Hct 42 (42-52) % MCV (80-100) fL MCH (25-34) pg MCHC (32-36) g/dL RDW Std Deviation (36.4-46.3) fL RDW Coeff of Mandi (11.5-14.5) % Plt Count (130-400) K/uL MPV (7.4-10.4) fL Immature Gran % (Auto) % Neut % (Auto) % Lymph % (Auto) % [place] % (Auto) % Eos % (Auto) % Baso % (Auto) % Immature Gran # (Auto) (0.00-0.02) K/uL Neut # (Auto) (1.4-6.5) K/uL Lymph # (Auto) (1.2-3.4) K/uL [place] # (Auto) (0.11-0.59) K/uL Eos # (Auto) (0-0.5) K/uL Baso # (Auto) (0-0.2) K/uL PT (9.0-12.0) Seconds INR (0.9-1.1) APTT (21.0-31.0) Seconds PTT Ratio POC Sodium 144 (135-144) mEq/L Sodium (136-145) mmol/L POC Potassium 3.9 (3.3-5.0) mEq/L Potassium (3.5-5.1) mmol/L POC Chloride 106 (101-112) mEq/L Chloride (98-107) mmol/L Carbon Dioxide (21-32) mmol/L POC Total CO2 25 (24-31) mEq/l Anion Gap (3-11) POC Anion Gap 18.0 (16-25) mmol/L POC BUN 22 H (7-18) mg/dl BUN (7-18) mg/dl Creatinine (0.6-1.4) mg/dl POC Creatinine 1.2 (0.6-1.3) mg/dl Est Cr Clr Drug Dosing ml/min Est GFR ( Amer) Est GFR (Non-Af Amer) BUN/Creatinine Ratio (10-20) Glucose (70-99) mg/dl POC Glucose (other) 143 H (70-99) mg/dl Calcium (8.5-10.1) mg/dl POC Ioniz Calcium Jake 1.17 (1.12-1.32) mmol/l Magnesium (1.8-2.4) mg/dl Total Bilirubin (0.2-1) mg/dl AST (15-37) U/L ALT (12-78) U/L Alkaline Phosphatase (45-117) U/L CK-MB (CK-2) (0.5-3.6) ng/ml CK/CKMB % Calc Troponin I (0-0.045) ng/ml Total Protein (6.4-8.2) gm/dl Albumin (3.4-5.0) gm/dl Globulin (2.5-4.0) gm/dl Albumin/Globulin Ratio (0.9-2) Imaging Data Radiologist's Impression: Radiology results as stated below per my review and the radiologist's interpretation: XR chest 1V portable CLINICAL HISTORY: Pt left sided weakness COMPARISON STUDY: 05/14/2019 FINDINGS: The heart is mildly enlarged. Is a left subclavian dual-chamber central venous pacemaker. There is no lobar consolidation. There are no significant pleural effusions. There is slight elevation of interstitium, similar to prior studies and likely chronic.[ IMPRESSION: Mild cardiomegaly and chronic interstitial thickening. No evidence of acute parenchymal consolidation Electronically signed by: Gage Combs M.D. 06/23/2019 10:[address] head/brain wo con CLINICAL HISTORY: Unresponsive patient. Confusion. Possible stroke. COMPARISON STUDY: May 14, 2019 TECHNIQUE: Axial CT of the brain is performed from the vertex to the skull base. IV contrast was not administered for this examination. A dose lowering technique was utilized adhering to the principles of ALARA. CT DOSE: FINDINGS: No intra or extra-axial mass lesions are visualized. There is no CT evidence of acute cortical infarction. There is no evidence of midline shift. There is no ac [place] hemorrhage. No calvarial fractures are visualized. There are patchy white matter hypodensities likely on a small vessel basis. There are multiple scattered lacunar infarcts, similar to the preceding study. There is mild ventricular dilatation, finding which is felt to be secondary to find loss. There is polypoid mucosal thickening involving the ethmoid sinuses. There is a left nasal polyp. There is mucosal thickening within the frontal sinus. These finding remains stable. IMPRESSION: No acute intracranial findings Electronically signed by: Gage Combs M.D. 06/23/2019 10:[address] angio head w con CLINICAL HISTORY: Pt left sided weakness POSSIBLE ACUTE STROKE TECHNIQUE: CT angiography of the head was performed in a dynamic helical fashion during intravenous administration of 119 cc of Optiray 320. MIP imaging was performed. A dose lowering technique was utilized adhering to the principles of ALARA. CT DOSE: 1206.93 mGy.cm COMPARISON STUDY: Noncontrast head CT performed the same day FINDINGS: There are no lesion suspicious for aneurysm. There are no major intracranial branch occlusions. The dural venous sinuses appear patent. There is moderate white matter disease with scattered lacunar infarcts. There are no pathologically enhancing masses. There is paranasal sinus disease. There is a small left nasal polyp IMPRESSION: 1. Unremarkable CT angiography of the brain. Electronically signed by: Gage Combs M.D. 06/23/2019 10:[address] angio neck with con CLINICAL HISTORY: Left-sided weakness. Possible stroke. COMPARISON STUDY: No previous studies for comparison. TECHNIQUE: CT angiography was performed from the aortic arch to the skull base. MIP imaging was performed. The patient was scanned in a dynamic helical fashion during intravenous administration of 119 cc of Optiray 320. A dose lowering technique was utilized adhering to the principles of ALARA. CT DOSE: Technique: CT angiogram of the carotid and vertebral arteries was obtained using intravenous contrast and 3-D reconstruction. NASCET criteria was utilized. Findings: The right carotid revealed no evidence of aneurysm and no evidence of dissection. There is no evidence of hemodynamic significant stenosis. The left carotid revealed no evidence of hemodynamic significant stenosis. There is no evidence of aneurysm. There is no evidence of dissection. There is no evidence of hemodynamically significant vertebral stenosis. There is no evidence of vertebral dissection. There are mildly enlarged mediastinal lymph nodes. There is an ulcerated plaque arising from the aortic arch. IMPRESSION: 1. No evidence of hemodynamically significant carotid or vertebral artery stenosis. No evidence of dissection. 2. Mildly enlarged mediastinal lymph nodes 3. 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 06/23/2019 11:05 AM ECG Data Attestation: I personally reviewed and interpreted this ECG as follows: Indication: altered mental status Rate (beats per minute): 63 Findings: + other (AV conduction, old inferior infarct), + paced rhythm (atrial) and + left axis deviation; no ST depression and no ST elevation Blood Pressure Blood Pressure Findings: Normal blood pressure Blood Pressure Disposition: did not require urgent referral MDM Narrative This is an 89-year-old male who presents the emergency department with an altered mental status. Originally upon arrival the patient is not speaking however he is following commands. Due to the change of mental status in the short time. A stroke alert was initiated however I do not feel that the patient is a TPA candidate as he has a history of intracerebral hemorrhage. CAT scan of the head is concerning for multiple CVAs. He was given breathing treatments in the emergency department. The patient did improve while in the emergency department. I had multiple talks with the patient's family. The decision was made to admit the patient to the hospital. Patient family were in agreement with the treatment plan. Impression & Plan Altered mental status, Hypoxia Discharge Plan Visit Data *Final* Discharge Date/Time: 06/23/19 15:48 Chief Complaint: Neuro Symptoms/Deficit Stated Complaint: unresponsive / eval ED Provider: Raphael Alvarado Discharge Problem: Altered mental status, Hypoxia Patient Disposition: Admitted As Inpatient Discharge Instructions Interventions: ED Discharge Assessment Last Done: 06/23/19 15:48 The scribe's documentation has been prepared under my direction and personally reviewed by me in its entirety. I confirm that the note above accurately reflects all work, treatment, procedures, and medical decision making performed by me.
[2019-06-24] MEDS: cefTRIAXone SODIUM 2,000 MG in DEXTROSE 5% 50 ML IV SCH (10:38)
--- NOTE | 2019-06-24 16:17 | Hospitalist Progress Note ---
Date of Service June 24, 2019 Assessment & Plan (1) UTI (urinary tract infection): Recent urinary tract infection on 05/14/2019: E. coli: Resistant to ampicillin Sensitive to ceftriaxone- Urine culture this admission gram-negative bacilli, Isolation sensitivity pending Patient is continued with IV Rocephin/ceftriaxone-continue final culture is report available (2) Metabolic encephalopathy: Presented with confusion, altered mental status, metabolic encephalopathy secondary to urinary tract infection Symptom resolved after IV hydration, antibiotic treatment Patient is alert and awake communicative, mental status returned to approximate baseline (3) Hypoxia: Resolved, Presented with hypoxia Unclear etiology but seems to be an ongoing issue for patient intermittently even as outpatient CTA chest : IMPRESSION: 1. Cardiomegaly without evidence of pulmonary thromboembolic disease. 2. 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 3. Subsegmental bibasilar opacities suggest atelectasis. 4. Prominent and mildly enlarged nonspecific mediastinal adenopathy. 5. Prior granulomatous disease. Continue O2 via nasal canula for now -Patient will need evaluation for home O2 prior to discharge (4) Altered mental status: Metabolic encephalopathy secondary to you tract infection Present with lethargic, confusion Mental status improved back to baseline after IV hydration night IV fluids - (5) History of spontaneous intraventricular intracranial hemorrhage: No evidence of recurrent hemorrhage on CT Confusion/lethargyaltered mental status resolved after antibiotic treatment for urine tract infection (6) Hypertension: - Continue home meds (Lisinopril, amlodipine and coreg) Blood pressure stable (7) Hyperlipidemia: - Continue atorvastatin 40 mg daily (8) Hypothyroidism: - Continue levothyroxine (9) BPH w urinary obs/LUTS: - Continue finasteride -History of recurrent urinary tract infection as outlined above Urine culture shows gram-negative bacilli, continue with antibiotic IV Rocephin pending final result CODE STATUS: DNR/DNI Disposition: Patient is a resident at personal detention Will need PT OT evaluation prior return back to [facility] Social service consulted for discharge planning Subjective Patient alert awake, very pleasant, able to communicate Was hoping to be discharged today Patient is updated: That he has urine tract infection again will need at least 1 more day of IV antibiotic Patient is agreeable for hospital stay for treatment Physical Exam Constitutional: WD/WN, vitals as above Elderly male no sign of distress, very pleasant Eyes: PERRL, conjunctivae normal, anicteric sclerae ENMT: external ear and nose normal, oropharynx normal Neck: trachea midline, no thyromegaly Respiratory: normal respiratory effort, lungs clear to auscultation Cardiovascular: RRR, no murmur, no edema Gastrointestinal (Abdomen): normal bowel sounds, soft, nontender, no hepatosplenomegaly Neurologic: PERRL, EOMI, accommodation nl, no face palsy, no dysarthria Baseline dementia, able to communicate Psychiatric: Orientation: alert Oriented to place and person Results & Data Vital Signs (Past 12 Hours) Vital Signs Temp Pulse Resp BP Pulse Ox 06/24/19 15:41 36.5 C 76 19 137/75 93 06/24/19 11:43 94 06/24/19 11:07 36.3 C L 63 20 104/66 94 06/24/19 07:10 36.4 C L 68 24 123/72 91 (1) UTI (urinary tract infection) Hematuria presence: without hematuria Urinary tract infection type: site unspecified Qualified Code(s): N39.0 - Urinary tract infection, site not specified (2) Hyperlipidemia Hyperlipidemia type: unspecified Qualified Code(s): E78.5 - Hyperlipidemia, unspecified (3) Hypothyroidism Hypothyroidism type: unspecified Qualified Code(s): E03.9 - Hypothyroidism, unspecified (4) Altered mental status Altered mental status type: unspecified Qualified Code(s): R41.82 - Altered mental status, unspecified (5) Hypertension Hypertension type: unspecified Qualified Code(s): I10 - Essential (primary) hypertension
[2019-06-24] MEDS: AMLODIPINE BESYLATE 5 MG TAB PO SCH (21:14)
[2019-06-25] MEDS: LEVOTHYROXINE SODIUM 75 MCG TABLET PO SCH (06:28)
[2019-06-25] MEDS: cefTRIAXone SODIUM 2,000 MG in DEXTROSE 5% 50 ML IV SCH (10:11)
[2019-06-25] MEDS: ASPIRIN 81 MG ECTAB PO SCH (10:15)
[2019-06-25] MEDS: CARVEDILOL 25 MG TAB PO SCH ×2 (10:15→22:07)
[2019-06-25] MEDS: ESCITALOPRAM OXALATE 10 MG TAB PO SCH (10:16)
[2019-06-25] MEDS: SACCHAROMYCES BOULARDII 250 MG CAP PO SCH ×2 (10:16→22:08)
[2019-06-25] MEDS: FINASTERIDE 5 MG TAB PO SCH (10:17)
[2019-06-25] MEDS: ATORVASTATIN 40 MG TAB PO SCH (10:17)
[2019-06-25] MEDS: ALLOPURINOL 300 MG TAB PO SCH (10:18)
[2019-06-25] MEDS: LISINOPRIL 20 MG TAB PO SCH ×2 (10:18→22:09)
[2019-06-25] MEDS ORDERED: IMIPENEM/CILASTATIN SODIUM 500 MG in DEXTROSE 5% 100 ML IV SCH (10:45)
--- NOTE | 2019-06-25 10:51 | Hospitalist Progress Note ---
Date of Service June 25, 2019 Subjective Attending note: Urine culture: Specimen collected 06/23/2019 Pseudomonas aeruginosa: MULTIDRUG-RESISTANT -Resistant to: Azactam/cefepime/Zosyn Antibiotic adjusted: IV Rocephin discontinued Started on IV imipenem 400 mg every 6 hours (dose adjusted based on creatinine c learance) ID Dr. Mejia consulted Joie Deleon MD Results & Data Vital Signs (Past 12 Hours) Vital Signs Temp Pulse Resp BP Pulse Ox 06/25/19 07:00 36.5 C 64 18 122/62 92
[2019-06-25] MEDS: SENNA 8.6 MG TAB PO SCH (11:51)
[2019-06-25] MEDS: IMIPENEM/CILASTATIN SODIUM 500 MG in DEXTROSE 5% 100 ML IV SCH ×2 (12:11→20:29)
--- NOTE | 2019-06-25 15:01 | Infectious Disease Consult ---
Date of Consultation June 25, 2019 Assessment & Plan (1) UTI (urinary tract infection): 89-year-old male admitted with encephalopathy found to have urinary tract infection with resistant pseudomonas aeruginosa. For now, IV imipenem appropriate, may be able to transition to oral ciprofloxacin the next day or so. Will discuss with all involved. Will follow. (2) Pseudomonas aeruginosa infection: History of Present Illness Reason for Consultation: Multidrug-resistant Pseudomonas UTI Attending Physician: Joie Deleon MD History of Present Illness 89-year-old male with history of prior intraventricular hemorrhage, hypertension, hyperlipidemia, hypothyroidism, BPH, who was admitted on the after being found poorly responsive at his [facility] with hypoxia. Was started on IV ceftriaxone, and work-up thus far has shown patient to have positive urine cultures for drug-resistant pseudomonas aeruginosa. Now has been changed to IV imipenem. Patient mental status has improved back to baseline, blood cultures have been negative, patient has been afebrile. Offers no new specific complaints. Allergies Allergy/AdvReac Type Severity Reaction Status Date / Time morphine Allergy Unknown Verified 05/14/19 06:32 Home Medications Home Medications Medication Instructions Recorded Confirmed Type acetaminophen 500 - 1,000 mg PO Q4 PRN 03/03/19 06/23/19 History allopurinol 300 mg PO DAILY 03/03/19 06/23/19 History aspirin 81 mg PO DAILY 03/03/19 06/23/19 History carvedilol [Coreg] 25 mg PO BID 03/03/19 06/23/19 History escitalopram oxalate 10 mg PO DAILY 03/03/19 06/23/19 History finasteride 5 mg PO DAILY 03/03/19 06/23/19 History levothyroxine [Synthroid] 75 mcg PO DAILY 03/03/19 06/23/19 History lisinopril 20 mg PO BID 03/03/19 06/23/19 History polyethylene glycol 3350 [Miralax] 17 g PO DAILY 03/03/19 06/23/19 History sennosides [senna] 8.6 mg PO BID 03/03/19 06/23/19 History Saccharomyces boulardii 250 mg PO BID 06/23/19 06/23/19 History amlodipine 5 mg PO HS 06/23/19 06/23/19 History atorvastatin 40 mg PO DAILY 06/23/19 06/23/19 History Patient History Medical History Constipation (Resolved) UTI (urinary tract infection) (Inactive) BPH w urinary obs/LUTS Hyperlipidemia Hypertension Hypothyroidism Intracranial hemorrhage Nontraumatic, 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 TIA (transient ischemic attack) Family History Other No pertinent family history Social History Preferred Language: Swedish Communication Ability: Impaired Beliefs That Will Affect Care: None marital status: / Current Living Situation: Personal Care Facility Current Living Situation Comment: [facility] current occupational status: retired Feels Safe at Home: Yes Safety Concerns: Feels Safe At This Time Smoking Status: Never smoker Hx Alcohol Use: No Hx Substance Use: No Review of Systems Review of Systems: Unobtainable due to cognitive status Physical Exam Constitutional: WD/WN, vitals as above comfortable; no acute distress Eyes: PERRL, conjunctivae normal, anicteric sclerae ENMT: external ear and nose normal, oropharynx normal Neck: trachea midline, no thyromegaly neck nontender Respiratory: normal respiratory effort, lungs clear to auscultation normal percussion; does not use accessory muscles Cardiovascular: Rate/Rhythm: regular rate and regular rhythm Heart Sounds: normal S1 and normal S2; no gallop, no murmur and no cardiac rub Vessels: normal peripheral pulses; no JVD Gastrointestinal (Abdomen): normal bowel sounds, soft, nontender, no hepatosplenomegaly Musculoskeletal: no cyanosis or clubbing, extremities motor strength 5/5 Spine: thoracic spine normal to inspection and lumbar spine normal to inspection; no cervical spinal tenderness Skin: no rashes, warm and dry normal turgor; no lesions Neurologic: patellar DTR's 2+ bilat, sensation intact no focal motor deficits Psychiatric: Orientation: alert and cooperative Affect: euthymic affect Judgement: + limited judgement Lymphatic: no cervical or axillary lymphadenopathy no inguinal lymphadenopathy Results & Data Vital Signs (Past 12 Hours) Vital Signs Temp Pulse Resp BP Pulse Ox 06/25/19 07:00 36.5 C 64 18 122/62 92 Laboratory Results Laboratory Results - last 48 hr 06/23/19 06/23/19 17:25 18:50 Urine Color Yellow Urine Appearance Clear Urine pH 6.0 Ur Specific [place] > 1.045 H Urine Protein Trace H Urine Glucose (UA) Negative Urine Ketones Negative Urine Blood Trace H Urine Nitrite Positive A Urine Bilirubin Negative Urine Urobilinogen Negative Ur Leukocyte Esterase 1+ H Urine WBC (Auto) >30 H Urine RBC (Auto) 0-4 U Hyaline Cast (Auto) 1-5 U Epithel Cells (Auto) 0-5 Urine Bacteria (Auto) 3+ H Nasal Screen MRSA (PCR) Negative Diagnostic Findings Microbiology 06/23/19 18:50 Urine,Clean Catch Urine Culture - Final Pseudomonas aeruginosa cc: ~ CT angio chest PE protocol HISTORY: 89 years-old Male with PE. Acute shortness of breath TECHNIQUE: Multiple CTA images of the chest were obtained after the intravenous administration of 119 ml Optiray 320. Coronal and sagittal MIPS were obtained from the axial data set and were submitted for review. All measurements were obtained according to NASCET criteria. A dose lowering technique was utilized adhering to the principles of ALARA. COMPARISON: CTA head neck of same day, chest radiograph of same day. FINDINGS: CTA: Heart is moderately enlarged. Trace pericardial effusion. Coronary arterial calcifications are noted. No thoracic aortic aneurysm. Ulcerative plaque arising from the aortic arch redemonstrated. Mixed plaque formation of the aortic arch with patency of the imaged great vessels. Pulmonary arterial tree is opacified to the level of the subsegmental branches. The segmental and subsegmental branches however are suboptimally visualized secondary to respiratory motion. No filling defects identified to suggest pulmonary thromboembolic disease. Left subclavian pacer is noted with leads overlying the right atrium and right ventricle. CT CHEST: No focal thyroid nodule. Calcified subcarinal lymph nodes. Prominent and mildly enlarged paratracheal lymph nodes are seen measuring up to 1.2 cm on the right. Prominent AP window lymph nodes are also present. Trace left pleural effusion. No pneumothorax. Mild dependent subsegmental bibasilar opacities suggest atelectasis with mild bibasilar bronchial wall thickening. No focal airspace consolidation typical for pneumonia. No suspicious pulmonary nodules or masses. Calcified granulomata of the superior segment left lower lobe and inferior segment lingula. Central airways appear patent. Cholecystectomy. Nonspecific mild thickening of the adrenal glands. Colonic diverticulosis. Gynecomastia. Soft tissues are unremarkable. Degenerative changes of the shoulders and spine. IMPRESSION: 1. Cardiomegaly without evidence of pulmonary thromboembolic disease. 2. 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 3. Subsegmental bibasilar opacities suggest atelectasis. 4. Prominent and mildly enlarged nonspecific mediastinal adenopathy. 5. Prior granulomatous disease. The above report was generated using voice recognition software. It may contain grammatical, syntax or spelling errors. Electronically signed by: Jackson Torres M.D. 06/23/2019 2:12 PM Dictated: 06/23/19 1404 Transcribed: 06/23/19 1404 (1) UTI (urinary tract infection) Hematuria presence: without hematuria Urinary tract infection type: site unspecified Qualified Code(s): N39.0 - Urinary tract infection, site not specified
--- NOTE | 2019-06-25 18:21 | Hospitalist Progress Note ---
Date of Service June 25, 2019 Assessment & Plan (1) UTI (urinary tract infection): Recent urinary tract infection on 05/14/2019: E. coli: Resistant to ampicillin Sensitive to ceftriaxone- Urine culture this admission gram-negative bacilli, Urine culture shows Pseudomonas multidrug-resistant, antibiotic changed to imipenem, ID evaluation requested Recommends to change ciprofloxacin in next 24 hours if remains clinically improved (2) Metabolic encephalopathy: Resolved, alert and awake oriented today, Presented with confusion, altered mental status, metabolic encephalopathy secondary to urinary tract infection Symptom resolved after IV hydration, antibiotic treatment Patient is alert and awake communicative, mental status returned to approximate baseline (3) Hypoxia: Resolved, Presented with hypoxia Unclear etiology but seems to be an ongoing issue for patient intermittently even as outpatient CTA chest : IMPRESSION: 1. Cardiomegaly without evidence of pulmonary thromboembolic disease. 2. 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 3. Subsegmental bibasilar opacities suggest atelectasis. 4. Prominent and mildly enlarged nonspecific mediastinal adenopathy. 5. Prior granulomatous disease. Continue O2 via nasal canula for now -Patient will need evaluation for home O2 prior to discharge (4) Altered mental status: Metabolic encephalopathy secondary to you tract infection Present with lethargic, confusion Mental status improved back to baseline with IV hydration and antibiotic treatment IV fluid discontinued patient has adequate oral intake, antibiotic adjustment as outlined above (5) History of spontaneous intraventricular intracranial hemorrhage: No focal neurological deficit patient is alert awake oriented x3 No evidence of recurrent hemorrhage on CT Confusion/lethargyaltered mental status resolved after antibiotic treatment for urine tract infection (6) Hypertension: - Continue home meds (Lisinopril, amlodipine and coreg) Blood pressure stable (7) Hyperlipidemia: - Continue atorvastatin 40 mg daily (8) Hypothyroidism: - Continue levothyroxine (9) BPH w urinary obs/LUTS: - Continue finasteride -History of recurrent urinary tract infection as outlined above Urine culture Pseudomonas, multidrug resistant, antibiotic adjusted CODE STATUS: DNR/DNI Disposition: Patient is a resident at personal longterm Update given to patient's daughter present at bedside, plan to return back to personal longterm when medically stable Subjective Attending note: Urine culture: Specimen collected 06/23/2019 Pseudomonas aeruginosa: MULTIDRUG-RESISTANT -Resistant to: Azactam/cefepime/Zosyn Antibiotic adjusted: IV Rocephin discontinued Started on IV imipenem 400 mg every 6 hours (dose adjusted based on creatinine clearance) ID Dr. Mejia consulted Appreciate input, recommended change to p.o. ciprofloxacin prior to discharge Patient is alert and awake, appetite normal, no fever chills Eager to be discharged from hospital daughter visiting, updated at bedside Physical Exam Constitutional: WD/WN, vitals as above Eyes: PERRL, conjunctivae normal, anicteric sclerae ENMT: external ear and nose normal, oropharynx normal Neck: trachea midline, no thyromegaly Respiratory: normal respiratory effort, lungs clear to auscultation Cardiovascular: RRR, no murmur, no edema Gastrointestinal (Abdomen): normal bowel sounds, soft, nontender, no hepatosplenomegaly Neurologic: PERRL, EOMI, accommodation nl, no face palsy, no dysarthria Psychiatric: Orientation: alert Results & Data Vital Signs (Past 12 Hours) Vital Signs Temp Pulse Resp BP Pulse Ox 06/25/19 07:00 36.5 C 64 18 122/62 92 (1) UTI (urinary tract infection) Hematuria presence: without hematuria Urinary tract infection type: site unspecified Qualified Code(s): N39.0 - Urinary tract infection, site not specified (2) Hyperlipidemia Hyperlipidemia type: unspecified Qualified Code(s): E78.5 - Hyperlipidemia, unspecified (3) Hypothyroidism Hypothyroidism type: unspecified Qualified Code(s): E03.9 - Hypothyroidism, unspecified (4) Altered mental status Altered mental status type: unspecified Qualified Code(s): R41.82 - Altered mental status, unspecified (5) Hypertension Hypertension type: unspecified Qualified Code(s): I10 - Essential (primary) hypertension
[2019-06-25] MEDS: AMLODIPINE BESYLATE 5 MG TAB PO SCH (22:07)
[2019-06-26] MEDS: IMIPENEM/CILASTATIN SODIUM 500 MG in DEXTROSE 5% 100 ML IV SCH (03:32)
[2019-06-26] MEDS: LEVOTHYROXINE SODIUM 75 MCG TABLET PO SCH (05:27)
[2019-06-26] MEDS ORDERED: CIPROFLOXACIN 250 MG TAB PO SCH (09:00)
[2019-06-26] MEDS: ASPIRIN 81 MG ECTAB PO SCH (09:10)
[2019-06-26] MEDS: CARVEDILOL 25 MG TAB PO SCH (09:10)
[2019-06-26] MEDS: FINASTERIDE 5 MG TAB PO SCH (09:11)
[2019-06-26] MEDS: SACCHAROMYCES BOULARDII 250 MG CAP PO SCH (09:11)
[2019-06-26] MEDS: ESCITALOPRAM OXALATE 10 MG TAB PO SCH (09:11)
[2019-06-26] MEDS: ATORVASTATIN 40 MG TAB PO SCH (09:11)
[2019-06-26] MEDS: ALLOPURINOL 300 MG TAB PO SCH (09:12)
[2019-06-26] MEDS: LISINOPRIL 20 MG TAB PO SCH (09:12)
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
== END 2019-06-26 17:02 | disposition home or self-care (01) | DRG 689 ==
LOC: ED 10:05 → 2S 13:43 → 4W 06-24 18:19